=== PATIENT | female | born 1955 | race Caucasian/White ===

== ENCOUNTER 2017-09-01 08:53 | Day surgery (SDC) | payer OTHER ==
[2017-09-01] MEDS ORDERED: LIDOCAINE 2% (SDV) 5 ML INJ (10:27)
[2017-09-01] MEDS ORDERED: PROPOFOL 20 ML (10:27)
[2017-09-01] MEDS ORDERED: MIDAZOLAM 1 MG/ML 2 ML INJ (10:27)
[2017-09-01] MEDS ORDERED: FENTAnyl 50 MCG/ML VIAL (10:27)
[2017-09-01] MEDS ORDERED: LABETALOL HCL 20MG INJ (10:30)
[2017-09-01] MEDS ORDERED: hydrALAzine 20 MG INJ (10:31)
[2017-09-01] MEDS ORDERED: FLUMAZENIL 0.5 MG INJ (10:50)
== END 2017-09-01 12:20 | disposition home or self-care (01) ==
LOC: GIL 08:53
DX: Z12.11 Encounter for screening for malignant neoplasm of colon (principal); K29.50 Unspecified chronic gastritis without bleeding; D12.6 Benign neoplasm of colon, unspecified; I10 Essential (primary) hypertension; E11.9 Type 2 diabetes mellitus without complications; E66.9 Obesity, unspecified; Z68.37 Body mass index [BMI] 37.0-37.9, adult
CPT/HCPCS: 43239; 82962; 88305; 88312

== ENCOUNTER 2017-11-16 06:05 | Day surgery (SDC) | payer OTHER ==
[2017-11-16 06:38] LABS: ADD MAN DIFF? NO
[2017-11-16 06:42] LABS: WHITE BLOOD COUNT 10.1 10^3/ul (4.8-10.8)
[2017-11-16 06:42] LABS: BASOPHILS % 0.4 % (0.0-2.0); EOSINOPHILS # 0.2 10^3/ul (0.0-0.5); EOSINOPHILS % 1.5 % (0.0-7.0); HEMATOCRIT 35.4 % (37.0-47.0); HEMOGLOBIN 11.6 g/dl (12.0-16.0); LYMPHOCYTES # 2.4 10^3/ul (0.8-2.9); LYMPHOCYTES % 24.2 % (15.0-51.0); MEAN CORPUSCULAR HEMOGLOBIN 28.2 pg (29.0-33.0); MEAN CORPUSCULAR HGB CONC 32.8 g/dl (32.0-37.0); MEAN CORPUSCULAR VOLUME 85.9 fl (82.0-101.0); MEAN PLATELET VOLUME 11.7 fl (7.4-10.4); MONOCYTE # 0.8 10^3/ul (0.3-0.9); MONOCYTES % 8.1 % (0.0-11.0); NEUTROPHIL # 6.6 10^3/ul (1.6-7.5); NEUTROPHILS % 65.4 % (39.0-77.0); PLATELET COUNT 216 10^3/UL (140-415); RED BLOOD COUNT 4.12 10^6/ul (4.20-5.40); RED CELL DISTRIBUTION WIDTH 13.3 % (11.5-14.5)
[2017-11-16 06:50] LABS: ALANINE AMINOTRANSFERASE 22 IU/L (13-69); ALBUMIN/GLOBULIN RATIO 1.07; ALKALINE PHOSPHATASE 107 IU/L (42-121); ANION GAP 12 (8-16); ASPARTATE AMINO TRANSFERASE 14 IU/L (15-46); BILIRUBIN,INDIRECT 0.1 mg/dl (0-1.1); BILIRUBIN,TOTAL 0.1 mg/dl (0.2-1.3); CARBON DIOXIDE 25 mmol/L (21-31); CHLORIDE 108 mmol/L (97-110); GLUCOSE 298 mg/dl (70-220); TOTAL PROTEIN 5.8 g/dl (6.1-8.1)
[2017-11-16 06:54] LABS: BLOOD UREA NITROGEN 20 mg/dl (7-20); CALCIUM 8.6 mg/dl (8.4-10.2); CREATININE 1.01 mg/dl (0.44-1.00); SODIUM 141 mmol/L (135-144)
[2017-11-16] MEDS ORDERED: FENTAnyl 50 MCG/ML VIAL ×2 (07:17→08:38)
[2017-11-16] MEDS ORDERED: IODIXANOL LOCM 100 ML BTL (07:17)
[2017-11-16] MEDS ORDERED: HEPARIN 1000 UNITS/NS (A-LINE) 1,000 ML (07:17)
[2017-11-16] MEDS ORDERED: MIDAZOLAM 1 MG/ML 2 ML INJ (07:17)
[2017-11-16 07:34] LABS: INR 0.91; PARTIAL THROMBOPLASTIN TIME 24.5 Sec (25.0-35.0); PROTIME 12.4 Sec (11.9-14.9)
[2017-11-16] MEDS ORDERED: HEPARIN 1000 UNITS/ML 10 ML INJ (07:57)
[2017-11-16] MEDS ORDERED: hydrALAzine 20 MG INJ (09:56)
[2017-11-16] MEDS: hydrALAzine 20 MG INJ IV (10:15)
[2017-11-16] MEDS: ACETAMINOPHEN 325 MG TAB PO (10:34)
== END 2017-11-16 13:30 | disposition home or self-care (01) ==
LOC: SDS 06:05
DX: I70.221 Atherosclerosis of native arteries of extremities with rest pain, right leg (principal); E66.01 Morbid (severe) obesity due to excess calories; Z68.37 Body mass index [BMI] 37.0-37.9, adult; E11.9 Type 2 diabetes mellitus without complications
CPT/HCPCS: 37227; 75710; 76937; 80053; 82962; 85025; 85610; 85730

== ENCOUNTER 2017-12-27 07:57 | Day surgery (SDC) | payer OTHER ==
[2017-12-27 08:43] LABS: ADD MAN DIFF? NO
[2017-12-27 08:44] LABS: BASOPHILS % 0.3 % (0.0-2.0); EOSINOPHILS # 0.2 10^3/ul (0.0-0.5); EOSINOPHILS % 1.7 % (0.0-7.0); HEMATOCRIT 36.5 % (37.0-47.0); HEMOGLOBIN 11.9 g/dl (12.0-16.0); LYMPHOCYTES # 2.5 10^3/ul (0.8-2.9); LYMPHOCYTES % 23.5 % (15.0-51.0); MEAN CORPUSCULAR HEMOGLOBIN 27.8 pg (29.0-33.0); MEAN CORPUSCULAR HGB CONC 32.6 g/dl (32.0-37.0); MEAN CORPUSCULAR VOLUME 85.3 fl (82.0-101.0); MEAN PLATELET VOLUME 11.4 fl (7.4-10.4); MONOCYTE # 0.8 10^3/ul (0.3-0.9); MONOCYTES % 7.1 % (0.0-11.0); NEUTROPHIL # 7.1 10^3/ul (1.6-7.5); NEUTROPHILS % 66.9 % (39.0-77.0); PLATELET COUNT 239 10^3/UL (140-415); RED BLOOD COUNT 4.28 10^6/ul (4.20-5.40); RED CELL DISTRIBUTION WIDTH 13.7 % (11.5-14.5)
[2017-12-27 08:44] LABS: WHITE BLOOD COUNT 10.6 10^3/ul (4.8-10.8)
[2017-12-27 09:01] LABS: ALANINE AMINOTRANSFERASE 23 IU/L (13-69); ALBUMIN 3.6 g/dl (3.3-4.9); ALBUMIN/GLOBULIN RATIO 1.28; ALKALINE PHOSPHATASE 112 IU/L (42-121); ANION GAP 14 (8-16); ASPARTATE AMINO TRANSFERASE 17 IU/L (15-46); BILIRUBIN,INDIRECT 0.3 mg/dl (0-1.1); BILIRUBIN,TOTAL 0.3 mg/dl (0.2-1.3); CALCIUM 8.9 mg/dl (8.4-10.2); CARBON DIOXIDE 26 mmol/L (21-31); CHLORIDE 105 mmol/L (97-110); CREATININE 1.01 mg/dl (0.44-1.00); GLUCOSE 185 mg/dl (70-220); POTASSIUM 4.3 mmol/L (3.5-5.1); SODIUM 141 mmol/L (135-144); TOTAL PROTEIN 6.4 g/dl (6.1-8.1)
[2017-12-27 09:02] LABS: BLOOD UREA NITROGEN 24 mg/dl (7-20)
[2017-12-27 09:13] LABS: PROTIME 12.2 Sec (11.9-14.9)
[2017-12-27 09:17] LABS: PARTIAL THROMBOPLASTIN TIME 24.6 Sec (25.0-35.0)
[2017-12-27] MEDS ORDERED: HEPARIN 1000 UNITS/NS (A-LINE) 1,000 ML (09:24)
[2017-12-27] MEDS ORDERED: LIDOCAINE 1% (MDV) 10 ML INJ (09:24)
[2017-12-27] MEDS ORDERED: IODIXANOL LOCM 100 ML BTL (09:24)
[2017-12-27] MEDS ORDERED: FENTAnyl 50 MCG/ML VIAL (09:26)
[2017-12-27] MEDS ORDERED: MIDAZOLAM 1 MG/ML 2 ML INJ (09:26)
[2017-12-27] MEDS ORDERED: SOD CHLORIDE 0.9% 500 ML (10:14)
[2017-12-27] MEDS ORDERED: SOD CHLORIDE 0.9% 1,000 ML IV (11:13)
[2017-12-27] MEDS ORDERED: ONDANSETRON 4 MG INJ IV (11:30)
[2017-12-27] MEDS: hydrALAzine 20 MG INJ IV (12:10)
[2017-12-27] MEDS: ACETAMINOPHEN 325 MG TAB PO (12:55)
== END 2017-12-27 15:50 | disposition home or self-care (01) ==
LOC: SDS 07:57
DX: I73.9 Peripheral vascular disease, unspecified (principal); E11.9 Type 2 diabetes mellitus without complications; I10 Essential (primary) hypertension
CPT/HCPCS: 37227; 75710; 76937; 80053; 82962; 85025; 85610; 85730

== ENCOUNTER 2018-02-07 02:52 | Inpatient (IN) | payer OTHER ==
[2018-02-07] MEDS ORDERED: NITROGLYCERIN (SL) 0.4 MG TAB SL (03:30)
[2018-02-07] MEDS ORDERED: ACETAMINOPHEN 325 MG TAB PO ×2 (03:30→14:00)
[2018-02-07] MEDS ORDERED: DEXTROSE 50% 50 ML SYRINGE IV ×2 (04:00)
[2018-02-07] MEDS ORDERED: GLUCOSE GEL 15 GRAM TUBE BUCCAL (04:00)
[2018-02-07] MEDS ORDERED: GLUCOSE GEL 15 GRAM TUBE PO ×2 (04:00)
[2018-02-07] MEDS ORDERED: GLUCAGON 1 MG INJ IM (04:00)
[2018-02-07] MEDS: BENAZEPRIL 40 MG TAB PO (04:06)
[2018-02-07 05:59] LABS: ADD MAN DIFF? NO
[2018-02-07 06:06] LABS: WHITE BLOOD COUNT 9.9 10^3/ul (4.8-10.8)
[2018-02-07 06:06] LABS: BASOPHILS % 0.4 % (0.0-2.0); EOSINOPHILS # 0.1 10^3/ul (0.0-0.5); EOSINOPHILS % 1.4 % (0.0-7.0); HEMATOCRIT 34.7 % (37.0-47.0); HEMOGLOBIN 11.6 g/dl (12.0-16.0); IMMATURE GRANS #M 0.04 10^3/ul; IMMATURE GRANS % (M) 0.4 %; LYMPHOCYTES # 2.5 10^3/ul (0.8-2.9); LYMPHOCYTES % 25.1 % (15.0-51.0); MEAN CORPUSCULAR HGB CONC 33.4 g/dl (32.0-37.0); MEAN CORPUSCULAR VOLUME 83.6 fl (82.0-101.0); MEAN PLATELET VOLUME 11.7 fl (7.4-10.4); MONOCYTE # 0.7 10^3/ul (0.3-0.9); NEUTROPHIL # 6.5 10^3/ul (1.6-7.5); NEUTROPHILS % 65.7 % (39.0-77.0); PLATELET COUNT 258 10^3/UL (140-415); RED BLOOD COUNT 4.15 10^6/ul (4.20-5.40); RED CELL DISTRIBUTION WIDTH 13.7 % (11.5-14.5)
[2018-02-07 06:51] LABS: ALANINE AMINOTRANSFERASE 19 IU/L (13-69); ALBUMIN 3.2 g/dl (3.3-4.9); ALBUMIN/GLOBULIN RATIO 1.03; ALKALINE PHOSPHATASE 127 IU/L (42-121); ANION GAP 13 (8-16); ASPARTATE AMINO TRANSFERASE 18 IU/L (15-46); BILIRUBIN,INDIRECT 0.1 mg/dl (0-1.1); BILIRUBIN,TOTAL 0.1 mg/dl (0.2-1.3); BLOOD UREA NITROGEN 23 mg/dl (7-20); CARBON DIOXIDE 25 mmol/L (21-31); CHLORIDE 103 mmol/L (97-110); CHOL/HDL RATIO 6.8 RATIO; CHOLESTEROL 218 mg/dl (100-200); CREATINE KINASE 56 IU/L (23-200); CREATININE 0.96 mg/dl (0.44-1.00); GLUCOSE 322 mg/dl (70-220); HDL CHOLESTEROL 32 mg/dl (35-98); POTASSIUM 4.5 mmol/L (3.5-5.1); SODIUM 136 mmol/L (135-144); TOTAL PROTEIN 6.3 g/dl (6.1-8.1)
[2018-02-07 06:54] LABS: CK INDEX 1.2; CK-MB 0.69 ng/ml (0.0-2.4); TROPONIN-I 0.055 ng/ml (0.000-0.120)
[2018-02-07 07:02] LABS: LDL CHOLESTEROL,CALCULATED 16 mg/dl; TRIGLYCERIDES 852 mg/dl (0-149)
[2018-02-07 07:44] LABS: HEMOGLOBIN A1C 9.8 % (0-5.9)
[2018-02-07] MEDS: INSULIN ASPART [NOVOLOG] 3 ML PEN SC ×6 (08:09→21:00)
[2018-02-07] MEDS: CLOPIDOGREL 75 MG TAB PO (08:14)
[2018-02-07] MEDS: INSULIN GLARGINE [LANTus] (100 UNITS/ML) SYG SC (08:30)
[2018-02-07] MEDS ORDERED: ONDANSETRON 4 MG INJ IV (14:00)
[2018-02-07] MEDS ORDERED: morphine 2 MG INJ IV (14:00)
[2018-02-07] MEDS ORDERED: HYDROCODONE/APAP (5/325) TAB PO (14:00)
[2018-02-07] MEDS ORDERED: INSULIN LISPRO 100 UNIT/ML VIAL SC (17:30)
[2018-02-07] MEDS: ATORVASTATIN 20 MG TAB PO (20:18)
[2018-02-07] MEDS: LOSARTAN 25 MG TAB PO (20:19)
[2018-02-08] MEDS: ACCU-CHEK XX (02:00)
[2018-02-08 06:14] LABS: ADD MAN DIFF? NO
[2018-02-08 06:21] LABS: WHITE BLOOD COUNT 9.5 10^3/ul (4.8-10.8)
[2018-02-08 06:21] LABS: BASOPHILS % 0.4 % (0.0-2.0); EOSINOPHILS # 0.2 10^3/ul (0.0-0.5); EOSINOPHILS % 2.4 % (0.0-7.0); HEMATOCRIT 33.1 % (37.0-47.0); IMMATURE GRANS #M 0.05 10^3/ul; IMMATURE GRANS % (M) 0.5 %; LYMPHOCYTES # 2.5 10^3/ul (0.8-2.9); LYMPHOCYTES % 26.8 % (15.0-51.0); MEAN CORPUSCULAR HEMOGLOBIN 28.2 pg (29.0-33.0); MEAN CORPUSCULAR HGB CONC 33.2 g/dl (32.0-37.0); MEAN CORPUSCULAR VOLUME 84.9 fl (82.0-101.0); MEAN PLATELET VOLUME 11.6 fl (7.4-10.4); MONOCYTE # 0.9 10^3/ul (0.3-0.9); MONOCYTES % 9.7 % (0.0-11.0); NEUTROPHIL # 5.7 10^3/ul (1.6-7.5); NEUTROPHILS % 60.2 % (39.0-77.0); PLATELET COUNT 232 10^3/UL (140-415); RED CELL DISTRIBUTION WIDTH 13.6 % (11.5-14.5)
[2018-02-08 06:36] LABS: INR 0.93; PROTIME 12.6 Sec (11.9-14.9)
[2018-02-08 06:51] LABS: TROPONIN-I 0.035 ng/ml (0.000-0.120)
[2018-02-08 06:57] LABS: ALANINE AMINOTRANSFERASE 27 IU/L (13-69); ALBUMIN 2.8 g/dl (3.3-4.9); ALBUMIN/GLOBULIN RATIO 1.12; ALKALINE PHOSPHATASE 108 IU/L (42-121); ANION GAP 12 (8-16); ASPARTATE AMINO TRANSFERASE 17 IU/L (15-46); BILIRUBIN,INDIRECT 0.2 mg/dl (0-1.1); BILIRUBIN,TOTAL 0.2 mg/dl (0.2-1.3); BLOOD UREA NITROGEN 29 mg/dl (7-20); CALCIUM 8.8 mg/dl (8.4-10.2); CARBON DIOXIDE 25 mmol/L (21-31); CHLORIDE 102 mmol/L (97-110); CREATININE 1.34 mg/dl (0.44-1.00); GLUCOSE 300 mg/dl (70-220); MAGNESIUM 1.8 mg/dl (1.7-2.5); PHOSPHORUS 4.9 mg/dl (2.5-4.9); SODIUM 134 mmol/L (135-144); TOTAL PROTEIN 5.3 g/dl (6.1-8.1)
[2018-02-08] MEDS: INSULIN ASPART [NOVOLOG] 3 ML PEN SC ×6 (07:41→17:31)
[2018-02-08] MEDS: CLOPIDOGREL 75 MG TAB PO (08:12)
[2018-02-08] MEDS: LOSARTAN 25 MG TAB PO (08:13)
[2018-02-08] MEDS: INSULIN GLARGINE [LANTus] (100 UNITS/ML) SYG SC (08:25)
[2018-02-08] MEDS: ENOXAPARIN 40 MG/0.4 ML SYG SC (08:27)
[2018-02-08 09:23] LABS: CHOLESTEROL 191 mg/dl (100-200)
[2018-02-08 09:23] LABS: CHOL/HDL RATIO 6.8 RATIO; HDL CHOLESTEROL 28 mg/dl (35-98); LDL CHOLESTEROL,CALCULATED 27 mg/dl
[2018-02-08 09:24] LABS: TRIGLYCERIDES 679 mg/dl (0-149)
[2018-02-09] MEDS ORDERED: INSULIN GLARGINE [LANTus] (100 UNITS/ML) SYG SC (08:00)
== END 2018-02-08 18:59 | disposition home or self-care (01) | DRG 313 ==
LOC: 6WM 02:52
DX: R07.89 Other chest pain (principal); E88.81 Metabolic syndrome and other insulin resistance; I65.29 Occlusion and stenosis of unspecified carotid artery; R19.7 Diarrhea, unspecified; E11.9 Type 2 diabetes mellitus without complications; E11.40 Type 2 diabetes mellitus with diabetic neuropathy, unspecified; D64.9 Anemia, unspecified; K21.9 Gastro-esophageal reflux disease without esophagitis; R55 Syncope and collapse; Z79.4 Long term (current) use of insulin
CPT/HCPCS: 71045; 80053; 80061; 82550; 82553; 82962; 83036; 83735; 84100; 84443; 84484; 85025; 85610; 87081; 93005; 93306; 93880; G0378

== ENCOUNTER 2018-03-10 05:45 | Day surgery (SDC) | payer OTHER ==
[2018-03-10 06:48] LABS: ADD MAN DIFF? NO
[2018-03-10 06:50] LABS: BASOPHIL # 0.1 10^3/ul (0.0-0.1); BASOPHILS % 0.4 % (0.0-2.0); EOSINOPHILS # 0.2 10^3/ul (0.0-0.5); EOSINOPHILS % 1.2 % (0.0-7.0); HEMOGLOBIN 10.7 g/dl (12.0-16.0); LYMPHOCYTES # 2.3 10^3/ul (0.8-2.9); LYMPHOCYTES % 16.6 % (15.0-51.0); MEAN CORPUSCULAR HEMOGLOBIN 28.2 pg (29.0-33.0); MEAN CORPUSCULAR HGB CONC 32.4 g/dl (32.0-37.0); MEAN CORPUSCULAR VOLUME 86.8 fl (82.0-101.0); MEAN PLATELET VOLUME 11.3 fl (7.4-10.4); MONOCYTE # 1.2 10^3/ul (0.3-0.9); MONOCYTES % 8.8 % (0.0-11.0); NEUTROPHIL # 10.2 10^3/ul (1.6-7.5); NEUTROPHILS % 72.4 % (39.0-77.0); PLATELET COUNT 273 10^3/UL (140-415); RED CELL DISTRIBUTION WIDTH 14.5 % (11.5-14.5)
[2018-03-10 07:17] LABS: ALANINE AMINOTRANSFERASE 22 IU/L (13-69); ALBUMIN 3.4 g/dl (3.3-4.9); ALBUMIN/GLOBULIN RATIO 1.09; ALKALINE PHOSPHATASE 94 IU/L (42-121); ANION GAP 12 (8-16); ASPARTATE AMINO TRANSFERASE 21 IU/L (15-46); BILIRUBIN,INDIRECT 0.6 mg/dl (0-1.1); BILIRUBIN,TOTAL 0.6 mg/dl (0.2-1.3); BLOOD UREA NITROGEN 20 mg/dl (7-20); CALCIUM 8.9 mg/dl (8.4-10.2); CARBON DIOXIDE 22 mmol/L (21-31); CHLORIDE 110 mmol/L (97-110); GLUCOSE 130 mg/dl (70-220); SODIUM 140 mmol/L (135-144); TOTAL PROTEIN 6.5 g/dl (6.1-8.1)
[2018-03-10 07:19] LABS: HOLD TRANSMISSIONS 1
[2018-03-10 07:50] LABS: INR 0.98; PROTIME 13.1 Sec (11.9-14.9)
[2018-03-10] MEDS ORDERED: LIDOCAINE 1% (MDV) 20 ML INJ (07:50)
[2018-03-10] MEDS ORDERED: FENTAnyl 50 MCG/ML VIAL (07:50)
[2018-03-10] MEDS ORDERED: IODIXANOL LOCM 100 ML BTL ×2 (07:50→09:31)
[2018-03-10] MEDS ORDERED: MIDAZOLAM 1 MG/ML 2 ML INJ (07:50)
[2018-03-10 07:51] LABS: PARTIAL THROMBOPLASTIN TIME 29.6 Sec (25.0-35.0)
[2018-03-10] MEDS ORDERED: HEPARIN 1000 UNITS/ML 10 ML INJ (09:31)
[2018-03-10] MEDS ORDERED: morphine 2 MG INJ IV (10:00)
[2018-03-10] MEDS ORDERED: ONDANSETRON 4 MG INJ IV (10:00)
[2018-03-10] MEDS ORDERED: SOD CHLORIDE 0.9% 1,000 ML IV (10:00)
== END 2018-03-10 16:50 | disposition home or self-care (01) ==
LOC: SDS 05:45
DX: I73.9 Peripheral vascular disease, unspecified (principal); E11.9 Type 2 diabetes mellitus without complications; I10 Essential (primary) hypertension
CPT/HCPCS: 37224; 75625; 75716; 76937; 80053; 82962; 85025; 85610; 85730

== ENCOUNTER 2018-03-11 18:32 | Inpatient (IN) | payer OTHER ==
[2018-03-11] MEDS ORDERED: DEXTROSE 50% 50 ML SYRINGE IV ×2 (21:30)
[2018-03-11] MEDS ORDERED: GLUCAGON 1 MG INJ IM (21:30)
[2018-03-11] MEDS ORDERED: GLUCOSE GEL 15 GRAM TUBE BUCCAL (21:30)
[2018-03-11] MEDS ORDERED: GLUCOSE GEL 15 GRAM TUBE PO ×2 (21:30)
[2018-03-12] MEDS: INSULIN ASPART [NOVOLOG] 3 ML PEN SC ×5 (00:18→20:59)
[2018-03-12] MEDS ORDERED: NACL 0.9% 3 ML SYG IV (00:30)
[2018-03-12] MEDS ORDERED: ALBUTEROL/IPRATROPIUM (NEB) 3 ML AMP HHN (00:30)
[2018-03-12] MEDS ORDERED: NITROGLYCERIN (SL) 0.4 MG TAB SL ×2 (00:30)
[2018-03-12] MEDS ORDERED: ONDANSETRON 4 MG INJ IV (00:30)
[2018-03-12] MEDS ORDERED: ACETAMINOPHEN 325 MG TAB PO (00:30)
[2018-03-12 00:50] LABS: ADD MAN DIFF? NO
[2018-03-12 00:54] LABS: WHITE BLOOD COUNT 10.6 10^3/ul (4.8-10.8)
[2018-03-12 00:54] LABS: BASOPHILS % 0.3 % (0.0-2.0); EOSINOPHILS # 0.3 10^3/ul (0.0-0.5); EOSINOPHILS % 2.6 % (0.0-7.0); HEMATOCRIT 30.1 % (37.0-47.0); HEMOGLOBIN 9.5 g/dl (12.0-16.0); LYMPHOCYTES # 1.9 10^3/ul (0.8-2.9); MEAN CORPUSCULAR HEMOGLOBIN 28.3 pg (29.0-33.0); MEAN CORPUSCULAR HGB CONC 31.6 g/dl (32.0-37.0); MEAN CORPUSCULAR VOLUME 89.6 fl (82.0-101.0); MEAN PLATELET VOLUME 12.1 fl (7.4-10.4); MONOCYTES % 9.7 % (0.0-11.0); NEUTROPHIL # 7.3 10^3/ul (1.6-7.5); PLATELET COUNT 205 10^3/UL (140-415); RED BLOOD COUNT 3.36 10^6/ul (4.20-5.40); RED CELL DISTRIBUTION WIDTH 14.6 % (11.5-14.5)
[2018-03-12 01:16] LABS: ALANINE AMINOTRANSFERASE 29 IU/L (13-69); ALBUMIN 2.9 g/dl (3.3-4.9); ALKALINE PHOSPHATASE 105 IU/L (42-121); ANION GAP 11 (8-16); ASPARTATE AMINO TRANSFERASE 34 IU/L (15-46); BILIRUBIN,INDIRECT 0.3 mg/dl (0-1.1); BILIRUBIN,TOTAL 0.3 mg/dl (0.2-1.3); BLOOD UREA NITROGEN 20 mg/dl (7-20); CALCIUM 8.4 mg/dl (8.4-10.2); CARBON DIOXIDE 23 mmol/L (21-31); CHLORIDE 108 mmol/L (97-110); CHOL/HDL RATIO 3.4 RATIO; CHOLESTEROL 89 mg/dl (100-200); CREATININE 0.86 mg/dl (0.44-1.00); GLUCOSE 231 mg/dl (70-220); HDL CHOLESTEROL 26 mg/dl (35-98); LDL CHOLESTEROL,CALCULATED 34 mg/dl; POTASSIUM 3.8 mmol/L (3.5-5.1); SODIUM 138 mmol/L (135-144); TOTAL PROTEIN 5.8 g/dl (6.1-8.1); TRIGLYCERIDES 144 mg/dl (0-149)
[2018-03-12 01:36] LABS: HEMOGLOBIN A1C 9.4 % (0-5.9)
[2018-03-12] MEDS: APIXABAN 5 MG TABLET PO ×2 (08:19→20:56)
[2018-03-12] MEDS: LOSARTAN 25 MG TAB PO (08:19)
[2018-03-12] MEDS: CLOPIDOGREL 75 MG TAB PO (08:19)
[2018-03-12] MEDS: HYDROCHLOROTHIAZIDE 25 MG TAB PO (08:19)
[2018-03-12] MEDS: AMLODIPINE 10 MG TAB PO (08:19)
[2018-03-12] MEDS: ASPIRIN 81 MG TAB PO (08:19)
[2018-03-12] MEDS ORDERED: LIRAGLUTIDE 18 UNIT SQ (09:00)
[2018-03-12] MEDS ORDERED: NON-FORMULARY/PATIENT OWN MED (Clopidogrel Bisulfate* 75 MG) PO (09:00)
[2018-03-12] MEDS ORDERED: NON-FORMULARY/PATIENT OWN MED (Carvedilol* 25 MG) PO (09:00)
[2018-03-12] MEDS: FUROSEMIDE 40 MG INJ IV (09:59)
[2018-03-12] MEDS: ACCU-CHEK XX ×5 (10:00→20:00)
[2018-03-12] MEDS: DOXAZOSIN 1 MG TAB PO (11:30)
[2018-03-12] MEDS: metFORMIN 850 MG TAB PO ×2 (11:30→17:04)
[2018-03-12] MEDS: [UNRECOGNIZED DRUG - REMARK] XX (11:30)
[2018-03-12] MEDS: FUROSEMIDE 20 MG INJ IV (11:31)
[2018-03-12 11:33] LABS: IRON 35 ug/dl (35-150)
[2018-03-12 11:43] LABS: % IRON SATURATION 13 % SAT (22-52); TOTAL IRON BINDING CAPACITY 271 ug/dl (241-421)
[2018-03-12 12:08] LABS: FERRITIN 76.9 ng/ml (11.1-264.0)
[2018-03-12] MEDS: EXENATIDE 250 MCG/ML 1.2ML PEN SC ×2 (16:54→23:00)
[2018-03-12] MEDS ORDERED: INSULIN GLARGINE [LANTus] (100 UNITS/ML) SYG SC (20:00)
[2018-03-12] MEDS: INSULIN GLARGINE [LANTus] (100 UNITS/ML) SYG SC (20:54)
[2018-03-12] MEDS: DOXAZOSIN 2 MG TAB PO (20:55)
[2018-03-12] MEDS: ATORVASTATIN 40 MG TAB PO (20:57)
[2018-03-12] MEDS ORDERED: ATORVASTATIN 40 MG TAB PO (21:00)
[2018-03-12] MEDS: LOSARTAN 50 MG TAB PO (21:01)
[2018-03-13 06:19] LABS: ADD MAN DIFF? NO
[2018-03-13 06:24] LABS: WHITE BLOOD COUNT 11.3 10^3/ul (4.8-10.8)
[2018-03-13 06:24] LABS: BASOPHILS % 0.3 % (0.0-2.0); EOSINOPHILS # 0.4 10^3/ul (0.0-0.5); EOSINOPHILS % 3.6 % (0.0-7.0); HEMATOCRIT 28.9 % (37.0-47.0); LYMPHOCYTES # 2.1 10^3/ul (0.8-2.9); LYMPHOCYTES % 18.3 % (15.0-51.0); MEAN CORPUSCULAR HGB CONC 31.1 g/dl (32.0-37.0); MEAN CORPUSCULAR VOLUME 86.8 fl (82.0-101.0); MEAN PLATELET VOLUME 11.4 fl (7.4-10.4); MONOCYTES % 9.1 % (0.0-11.0); NEUTROPHIL # 7.7 10^3/ul (1.6-7.5); NEUTROPHILS % 68.3 % (39.0-77.0); PLATELET COUNT 284 10^3/UL (140-415); RED BLOOD COUNT 3.33 10^6/ul (4.20-5.40); RED CELL DISTRIBUTION WIDTH 14.1 % (11.5-14.5)
[2018-03-13] MEDS: ACCU-CHEK XX ×6 (07:00→20:56)
[2018-03-13 07:16] LABS: ALANINE AMINOTRANSFERASE 26 IU/L (13-69); ALBUMIN 2.5 g/dl (3.3-4.9); ALKALINE PHOSPHATASE 82 IU/L (42-121); ANION GAP 11 (8-16); ASPARTATE AMINO TRANSFERASE 21 IU/L (15-46); BILIRUBIN,INDIRECT 0.2 mg/dl (0-1.1); BILIRUBIN,TOTAL 0.2 mg/dl (0.2-1.3); BLOOD UREA NITROGEN 26 mg/dl (7-20); CALCIUM 8.4 mg/dl (8.4-10.2); CARBON DIOXIDE 26 mmol/L (21-31); CHLORIDE 105 mmol/L (97-110); GLUCOSE 206 mg/dl (70-220); POTASSIUM 4.7 mmol/L (3.5-5.1); SODIUM 137 mmol/L (135-144)
[2018-03-13 07:19] LABS: MAGNESIUM 1.8 mg/dl (1.7-2.5)
[2018-03-13] MEDS ORDERED: EMPAGLIFLOZIN 10 MG TABLET PO (08:00)
[2018-03-13] MEDS: INSULIN ASPART [NOVOLOG] 3 ML PEN SC ×4 (08:17→21:00)
[2018-03-13] MEDS: APIXABAN 5 MG TABLET PO ×2 (09:42→21:02)
[2018-03-13] MEDS: metFORMIN 850 MG TAB PO ×2 (09:42→17:15)
[2018-03-13] MEDS: CHLORTHALIDONE 25 MG TAB PO (09:43)
[2018-03-13] MEDS: CLOPIDOGREL 75 MG TAB PO (09:43)
[2018-03-13] MEDS: FUROSEMIDE 40 MG INJ IV ×3 (09:43→21:01)
[2018-03-13] MEDS: ASPIRIN 81 MG TAB PO (09:43)
[2018-03-13] MEDS: LOSARTAN 50 MG TAB PO ×2 (09:43→21:00)
[2018-03-13] MEDS: EXENATIDE 250 MCG/ML 1.2ML PEN SC ×2 (14:00→20:55)
[2018-03-13] MEDS: INSULIN GLARGINE [LANTus] (100 UNITS/ML) SYG SC ×2 (14:12→21:14)
[2018-03-13] MEDS ORDERED: BISACODYL 10 MG SUPP PR (17:00)
[2018-03-13] MEDS: BISACODYL (EC) 5 MG TAB PO (17:55)
[2018-03-13] MEDS: INSULIN LISPRO 100 UNIT/ML VIAL SC (19:34)
[2018-03-13] MEDS: ATORVASTATIN 40 MG TAB PO (21:00)
[2018-03-13] MEDS: DOXAZOSIN 2 MG TAB PO (21:01)
[2018-03-14 05:46] LABS: ADD MAN DIFF? NO
[2018-03-14 05:52] LABS: WHITE BLOOD COUNT 10.7 10^3/ul (4.8-10.8)
[2018-03-14 05:52] LABS: BASOPHILS % 0.3 % (0.0-2.0); EOSINOPHILS # 0.3 10^3/ul (0.0-0.5); EOSINOPHILS % 2.9 % (0.0-7.0); HEMATOCRIT 32.4 % (37.0-47.0); HEMOGLOBIN 10.7 g/dl (12.0-16.0); LYMPHOCYTES # 1.7 10^3/ul (0.8-2.9); LYMPHOCYTES % 15.7 % (15.0-51.0); MEAN CORPUSCULAR HEMOGLOBIN 27.9 pg (29.0-33.0); MEAN CORPUSCULAR VOLUME 84.4 fl (82.0-101.0); MEAN PLATELET VOLUME 10.7 fl (7.4-10.4); MONOCYTE # 0.7 10^3/ul (0.3-0.9); MONOCYTES % 6.3 % (0.0-11.0); NEUTROPHIL # 7.9 10^3/ul (1.6-7.5); NEUTROPHILS % 74.1 % (39.0-77.0); PLATELET COUNT 330 10^3/UL (140-415); RED BLOOD COUNT 3.84 10^6/ul (4.20-5.40); RED CELL DISTRIBUTION WIDTH 13.9 % (11.5-14.5)
[2018-03-14 06:13] LABS: INR 1.21; PROTIME 15.5 Sec (11.9-14.9); PT RATIO 1.2
[2018-03-14 06:21] LABS: ALANINE AMINOTRANSFERASE 31 IU/L (13-69); ALBUMIN 3.2 g/dl (3.3-4.9); ALBUMIN/GLOBULIN RATIO 0.96; ALKALINE PHOSPHATASE 116 IU/L (42-121); ANION GAP 13 (8-16); ASPARTATE AMINO TRANSFERASE 17 IU/L (15-46); BILIRUBIN,INDIRECT 0.2 mg/dl (0-1.1); BILIRUBIN,TOTAL 0.2 mg/dl (0.2-1.3); BLOOD UREA NITROGEN 26 mg/dl (7-20); CALCIUM 9.4 mg/dl (8.4-10.2); CARBON DIOXIDE 30 mmol/L (21-31); CHLORIDE 100 mmol/L (97-110); GLUCOSE 175 mg/dl (70-220); MAGNESIUM 1.6 mg/dl (1.7-2.5); PHOSPHORUS 5.9 mg/dl (2.5-4.9); POTASSIUM 4.1 mmol/L (3.5-5.1); SODIUM 139 mmol/L (135-144); TOTAL PROTEIN 6.5 g/dl (6.1-8.1)
[2018-03-14 06:24] LABS: TROPONIN-I < 0.012 ng/ml (0.000-0.120)
[2018-03-14] MEDS: ACCU-CHEK XX ×3 (07:33→11:30)
[2018-03-14] MEDS: INSULIN ASPART [NOVOLOG] 3 ML PEN SC ×3 (07:36→17:36)
[2018-03-14] MEDS: metFORMIN 850 MG TAB PO ×2 (07:54→17:27)
[2018-03-14] MEDS: INSULIN LISPRO 100 UNIT/ML VIAL SC ×3 (07:57→17:31)
[2018-03-14] MEDS: LOSARTAN 50 MG TAB PO (08:38)
[2018-03-14] MEDS: APIXABAN 5 MG TABLET PO (08:38)
[2018-03-14] MEDS: ASPIRIN 81 MG TAB PO (08:38)
[2018-03-14] MEDS: BISACODYL (EC) 5 MG TAB PO (08:39)
[2018-03-14] MEDS: FUROSEMIDE 40 MG INJ IV ×2 (08:39→12:56)
[2018-03-14] MEDS: CLOPIDOGREL 75 MG TAB PO (08:39)
[2018-03-14] MEDS: EXENATIDE 250 MCG/ML 1.2ML PEN SC (08:46)
[2018-03-14] MEDS: MAGNESIUM SULFATE 2 GM/50 ML 50 ML IVPB (15:23)
[2018-03-15] MEDS ORDERED: HYDROCHLOROTHIAZIDE 12.5 MG CAP PO (09:00)
== END 2018-03-14 18:00 | disposition home or self-care (01) | DRG 292 ==
LOC: 6WM 03-12 16:21
PROVIDERS: Internal Medicine
DX: I11.0 Hypertensive heart disease with heart failure (principal); Z68.41 Body mass index [BMI] 40.0-44.9, adult; D62 Acute posthemorrhagic anemia; I50.33 Acute on chronic diastolic (congestive) heart failure; E11.51 Type 2 diabetes mellitus with diabetic peripheral angiopathy without gangrene; E66.01 Morbid (severe) obesity due to excess calories; E78.5 Hyperlipidemia, unspecified; I48.2 Chronic atrial fibrillation; I25.10 Atherosclerotic heart disease of native coronary artery without angina pectoris; I65.29 Occlusion and stenosis of unspecified carotid artery; I25.2 Old myocardial infarction; Z91.14 Patient's other noncompliance with medication regimen; Z95.828 Presence of other vascular implants and grafts; Z86.73 Personal history of transient ischemic attack (TIA), and cerebral infarction without residual deficits; Z90.49 Acquired absence of other specified parts of digestive tract; Z79.01 Long term (current) use of anticoagulants; Z79.4 Long term (current) use of insulin
CPT/HCPCS: 71045; 80053; 80061; 82728; 82962; 83036; 83540; 83735; 84100; 84443; 84484; 85025; 85610; 87081; 93306

== ENCOUNTER 2018-12-04 11:17 | Day surgery (SDC) | payer OTHER ==
[2018-12-04 12:08] LABS: ADD MAN DIFF? NO
[2018-12-04 12:11] LABS: WHITE BLOOD COUNT 12.3 10^3/ul (4.8-10.8)
[2018-12-04 12:11] LABS: BASOPHILS % 0.2 % (0.0-2.0); EOSINOPHILS # 0.2 10^3/ul (0.0-0.5); EOSINOPHILS % 1.5 % (0.0-7.0); HEMOGLOBIN 10.7 g/dl (12.0-16.0); LYMPHOCYTES # 2.8 10^3/ul (0.8-2.9); LYMPHOCYTES % 22.7 % (15.0-51.0); MEAN CORPUSCULAR HEMOGLOBIN 27.6 pg (29.0-33.0); MEAN CORPUSCULAR HGB CONC 32.4 g/dl (32.0-37.0); MEAN CORPUSCULAR VOLUME 85.1 fl (82.0-101.0); MEAN PLATELET VOLUME 11.4 fl (7.4-10.4); MONOCYTE # 0.8 10^3/ul (0.3-0.9); MONOCYTES % 6.4 % (0.0-11.0); NEUTROPHIL # 8.4 10^3/ul (1.6-7.5); NEUTROPHILS % 68.7 % (39.0-77.0); PLATELET COUNT 236 10^3/UL (140-415); RED BLOOD COUNT 3.88 10^6/ul (4.20-5.40); RED CELL DISTRIBUTION WIDTH 16.4 % (11.5-14.5)
[2018-12-04 12:22] LABS: HOLD TRANSMISSIONS 1
[2018-12-04 12:30] LABS: ALANINE AMINOTRANSFERASE 22 IU/L (13-69); ALBUMIN 3.3 g/dl (3.3-4.9); ALBUMIN/GLOBULIN RATIO 1.06; ALKALINE PHOSPHATASE 107 IU/L (42-121); ANION GAP 7 (5-13); ASPARTATE AMINO TRANSFERASE 21 IU/L (15-46); BILIRUBIN,INDIRECT 0.4 mg/dl (0-1.1); BILIRUBIN,TOTAL 0.4 mg/dl (0.2-1.3); CALCIUM 8.9 mg/dl (8.4-10.2); CARBON DIOXIDE 23 mmol/L (21-31); CHLORIDE 107 mmol/L (97-110); Estimated GFR 35 mL/min (>60); POTASSIUM 4.5 mmol/L (3.5-5.1); SODIUM 137 mmol/L (135-144); TOTAL PROTEIN 6.4 g/dl (6.1-8.1)
[2018-12-04 12:32] LABS: GLUCOSE 242 mg/dl (70-220)
[2018-12-04 12:33] LABS: BLOOD UREA NITROGEN 33 mg/dl (7-20); CREATININE 1.51 mg/dl (0.44-1.00)
[2018-12-04 12:54] LABS: PROTIME 12.3 Sec (11.9-14.9)
[2018-12-04] MEDS ORDERED: SOD CHLORIDE 0.9% 1,000 ML IV ×2 (13:00→15:19)
[2018-12-04 13:12] LABS: ADD UMIC YES; UR ASCORBIC ACID NEGATIVE (NEGATIVE); UR BILIRUBIN (Dip) NEGATIVE (NEGATIVE); UR BLOOD (Dip) NEGATIVE (NEGATIVE); UR CLARITY SLIGHTLY CLOUDY (CLEAR); UR COLOR YELLOW (YELLOW); UR GLUCOSE (Dip) 3+ mg/dL (NEGATIVE); UR KETONES (Dip) NEGATIVE (NEGATIVE); UR LEUKOCYTE ESTERASE (Dip) NEGATIVE Leu/ul (NEGATIVE); UR NITRITE (Dip) NEGATIVE (NEGATIVE); UR RBC 1 /HPF (0-5); UR SPECIFIC GRAVITY (Dip) 1.013 (1.003-1.030); UR SQUAMOUS EPITHELIAL CELL FEW /HPF (FEW); UR TOTAL PROTEIN (Dip) 3+ mg/dl (NEGATIVE); UR UROBILINOGEN (Dip) NEGATIVE (NEGATIVE); UR WBC 7 /HPF (0-5)
[2018-12-04] MEDS ORDERED: FENTAnyl 50 MCG/ML VIAL ×2 (13:52→14:50)
[2018-12-04] MEDS ORDERED: LIDOCAINE 1% (MDV) 20 ML INJ (13:52)
[2018-12-04] MEDS ORDERED: HEPARIN 1000 UNITS/NS (A-LINE) 1,000 ML (13:52)
[2018-12-04] MEDS ORDERED: IODIXANOL LOCM 100 ML BTL ×2 (13:52→15:13)
[2018-12-04] MEDS ORDERED: MIDAZOLAM 1 MG/ML 2 ML INJ (13:52)
[2018-12-04] MEDS ORDERED: hydrALAzine 20 MG INJ (15:15)
[2018-12-04] MEDS ORDERED: HEPARIN 1000 UNITS/ML 10 ML INJ (15:28)
[2018-12-04] MEDS ORDERED: IOHEXOL 350MG/ML 50 ML BTL (15:28)
[2018-12-04] MEDS ORDERED: ONDANSETRON 4 MG INJ IV (15:30)
[2018-12-04] MEDS: ACETAMINOPHEN 325 MG TAB PO (18:15)
[2018-12-04] MEDS: hydrALAzine 20 MG INJ IV (18:36)
== END 2018-12-07 10:20 | disposition home or self-care (01) ==
LOC: SDS 11:17
DX: I73.9 Peripheral vascular disease, unspecified (principal); I10 Essential (primary) hypertension; E11.9 Type 2 diabetes mellitus without complications
CPT/HCPCS: 37224; 75630; 80053; 81001; 82962; 85025; 85610; 85730

== ENCOUNTER 2018-12-21 05:31 | Inpatient (IN) | payer OTHER ==
[2018-12-21] MEDS ORDERED: GELATIN SIZE 100 SPONGE (06:40)
[2018-12-21] MEDS ORDERED: THROMBIN 5000 UNIT VIAL (06:41)
[2018-12-21] MEDS ORDERED: HEPARIN 1000 UNITS/ML 10 ML INJ ×2 (06:41→09:24)
[2018-12-21 06:44] LABS: ADD MAN DIFF? NO
[2018-12-21] MEDS: SOD CHLORIDE 0.9% 1,000 ML IV ×3 (06:50→22:40)
[2018-12-21 06:54] LABS: WHITE BLOOD COUNT 11.3 10^3/ul (4.8-10.8)
[2018-12-21 06:54] LABS: BASOPHILS % 0.4 % (0.0-2.0); EOSINOPHILS # 0.3 10^3/ul (0.0-0.5); EOSINOPHILS % 2.7 % (0.0-7.0); HEMATOCRIT 32.8 % (37.0-47.0); HEMOGLOBIN 10.5 g/dl (12.0-16.0); LYMPHOCYTES # 2.7 10^3/ul (0.8-2.9); LYMPHOCYTES % 24.2 % (15.0-51.0); MEAN CORPUSCULAR HEMOGLOBIN 27.9 pg (29.0-33.0); MEAN CORPUSCULAR VOLUME 87.2 fl (82.0-101.0); MEAN PLATELET VOLUME 11.6 fl (7.4-10.4); MONOCYTE # 0.9 10^3/ul (0.3-0.9); MONOCYTES % 7.5 % (0.0-11.0); NEUTROPHIL # 7.4 10^3/ul (1.6-7.5); NEUTROPHILS % 64.8 % (39.0-77.0); PLATELET COUNT 240 10^3/UL (140-415); RED BLOOD COUNT 3.76 10^6/ul (4.20-5.40); RED CELL DISTRIBUTION WIDTH 15.4 % (11.5-14.5)
[2018-12-21 07:18] LABS: INR 1.02; PARTIAL THROMBOPLASTIN TIME 27.6 Sec (23.0-35.0); PROTIME 13.5 Sec (11.9-14.9); PT RATIO 1.1
[2018-12-21 07:27] LABS: ALANINE AMINOTRANSFERASE 18 IU/L (13-69); ANION GAP 10 (5-13); ASPARTATE AMINO TRANSFERASE 21 IU/L (15-46); BILIRUBIN,INDIRECT 0.3 mg/dl (0-1.1); BILIRUBIN,TOTAL 0.3 mg/dl (0.2-1.3); CHLORIDE 107 mmol/L (97-110); POTASSIUM 4.7 mmol/L (3.5-5.1); TOTAL PROTEIN 6.3 g/dl (6.1-8.1)
[2018-12-21] MEDS: HEPARIN 1000 UNITS/ML 10 ML INJ IRR (07:30)
[2018-12-21 07:47] LABS: ALBUMIN/GLOBULIN RATIO 1.03
[2018-12-21 07:48] LABS: BLOOD UREA NITROGEN 47 mg/dl (7-20); CARBON DIOXIDE 20 mmol/L (21-31); GLUCOSE 258 mg/dl (70-220); SODIUM 137 mmol/L (135-144)
[2018-12-21 07:49] LABS: ALBUMIN 3.2 g/dl (3.3-4.9); ALKALINE PHOSPHATASE 137 IU/L (42-121); CREATININE 1.53 mg/dl (0.44-1.00); Estimated GFR 34 mL/min (>60)
[2018-12-21] MEDS ORDERED: FENTAnyl 50 MCG/ML VIAL (07:55)
[2018-12-21] MEDS ORDERED: ONDANSETRON 4 MG INJ IV (08:00)
[2018-12-21] MEDS ORDERED: DIPHENHYDRAMINE 50 MG INJ IV (08:00)
[2018-12-21] MEDS ORDERED: METOCLOPRAMIDE 10 MG INJ IV (08:00)
[2018-12-21] MEDS ORDERED: ALBUTEROL 0.083% (NEB) 2.5 MG/3 ML AMP HHN (08:00)
[2018-12-21] MEDS: INSULIN REGULAR, HUMAN 100 UNIT/1 ML 3ML VIAL SC (08:00)
[2018-12-21] MEDS ORDERED: HYDROmorphONE 1 MG/5 ML IV SYRINGE IV ×2 (08:00)
[2018-12-21] MEDS ORDERED: MEPERIDINE 25 MG INJ IV (08:00)
[2018-12-21] MEDS ORDERED: FENTAnyl 50 MCG/ML VIAL IV (08:00)
[2018-12-21] MEDS: GELATIN SIZE 100 SPONGE TOP (08:30)
[2018-12-21] MEDS: THROMBIN 5000 UNIT VIAL TOP (08:30)
[2018-12-21] MEDS: THROMBIN 5000 UNIT VIAL (10:46)
[2018-12-21] MEDS: GELATIN SIZE 100 SPONGE (10:46)
[2018-12-21] MEDS ORDERED: LIDOCAINE 100 MG SYRINGE (11:31)
[2018-12-21] MEDS ORDERED: ROCURONIUM 50 MG INJ (11:31)
[2018-12-21] MEDS ORDERED: SUCCINYLCHOLINE CHLORIDE 100 MG/5 ML SYG IV (11:31)
[2018-12-21] MEDS ORDERED: CEFAZOLIN 1 GM INJ (11:31)
[2018-12-21] MEDS ORDERED: SUGAMMADEX SODIUM 200 MG/2 ML VIAL IV (11:31)
[2018-12-21] MEDS ORDERED: PROPOFOL 20 ML (11:31)
[2018-12-21] MEDS: ACCU-CHEK XX ×3 (12:45→21:19)
[2018-12-21] MEDS: FENTAnyl 50 MCG/ML VIAL IV ×2 (13:40→14:21)
[2018-12-21] MEDS: morphine 2 MG INJ IV ×4 (13:53→20:01)
[2018-12-21] MEDS: HYDROmorphONE 1 MG/5 ML IV SYRINGE IV (14:27)
[2018-12-21] MEDS: ASPIRIN 81 MG TAB PO (14:41)
[2018-12-21] MEDS: HEPARIN 5,000 UNIT/1 ML VIAL SC ×2 (14:43→21:15)
[2018-12-21] MEDS ORDERED: ACETAMINOPHEN 325 MG TAB PO (16:00)
[2018-12-21] MEDS ORDERED: ALBUTEROL 0.083% (NEB) 2.5 MG/3 ML AMP NEB (16:00)
[2018-12-21] MEDS: HYDROmorphONE 0.5 MG/0.5 ML SYG IV ×2 (16:50→21:25)
[2018-12-21] MEDS: INSULIN ASPART [NOVOLOG] 3 ML PEN SC ×3 (18:48→21:16)
[2018-12-21] MEDS ORDERED: INSULIN GLARGINE [LANtus] 3 ML PEN SC (21:00)
[2018-12-21] MEDS: ATORVASTATIN 80 MG TAB PO (21:11)
[2018-12-21] MEDS: INSULIN GLARGINE [LANTus] (100 UNITS/ML) SYG SC (21:15)
[2018-12-21] MEDS: HYDROCODONE/APAP (10/325) TAB PO (23:36)
[2018-12-22] MEDS: HYDROmorphONE 0.5 MG/0.5 ML SYG IV ×4 (01:29→20:16)
[2018-12-22] MEDS: HYDROCODONE/APAP (5/325) TAB PO (03:45)
[2018-12-22 04:48] LABS: ADD MAN DIFF? NO
[2018-12-22 04:52] LABS: WHITE BLOOD COUNT 12.1 10^3/ul (4.8-10.8)
[2018-12-22 04:52] LABS: BASOPHILS % 0.2 % (0.0-2.0); EOSINOPHILS # 0.1 10^3/ul (0.0-0.5); EOSINOPHILS % 0.7 % (0.0-7.0); HEMOGLOBIN 8.3 g/dl (12.0-16.0); LYMPHOCYTES # 1.7 10^3/ul (0.8-2.9); LYMPHOCYTES % 14.4 % (15.0-51.0); MEAN CORPUSCULAR HEMOGLOBIN 27.3 pg (29.0-33.0); MEAN CORPUSCULAR HGB CONC 31.9 g/dl (32.0-37.0); MEAN CORPUSCULAR VOLUME 85.5 fl (82.0-101.0); MEAN PLATELET VOLUME 11.3 fl (7.4-10.4); MONOCYTE # 1.1 10^3/ul (0.3-0.9); MONOCYTES % 9.2 % (0.0-11.0); NEUTROPHILS % 75.1 % (39.0-77.0); PLATELET COUNT 193 10^3/UL (140-415); RED BLOOD COUNT 3.04 10^6/ul (4.20-5.40); RED CELL DISTRIBUTION WIDTH 15.6 % (11.5-14.5)
[2018-12-22 05:09] LABS: ANION GAP 7 (5-13); BLOOD UREA NITROGEN 43 mg/dl (7-20); CALCIUM 7.7 mg/dl (8.4-10.2); CARBON DIOXIDE 20 mmol/L (21-31); CHLORIDE 111 mmol/L (97-110); CREATININE 1.38 mg/dl (0.44-1.00); Estimated GFR 39 mL/min (>60); GLUCOSE 183 mg/dl (70-220); POTASSIUM 4.9 mmol/L (3.5-5.1); SODIUM 138 mmol/L (135-144)
[2018-12-22 05:10] LABS: MAGNESIUM 1.9 mg/dl (1.7-2.5)
[2018-12-22] MEDS: HEPARIN 5,000 UNIT/1 ML VIAL SC ×3 (06:00→22:49)
[2018-12-22] MEDS: FUROSEMIDE 20 MG TAB PO ×2 (06:35→18:05)
[2018-12-22] MEDS: ACCU-CHEK XX ×4 (07:05→21:00)
[2018-12-22] MEDS ORDERED: metFORMIN 500 MG TAB PO (07:35)
[2018-12-22] MEDS: INSULIN ASPART [NOVOLOG] 3 ML PEN SC ×7 (08:17→20:49)
[2018-12-22] MEDS: INSULIN GLARGINE [LANTus] (100 UNITS/ML) SYG SC ×2 (08:19→20:49)
[2018-12-22] MEDS ORDERED: HYDROCHLOROTHIAZIDE 25 MG TAB PO (09:00)
[2018-12-22] MEDS ORDERED: INSULIN GLARGINE [LANtus] 3 ML PEN SC (09:00)
[2018-12-22] MEDS: ASPIRIN 81 MG TAB PO (09:58)
[2018-12-22] MEDS: HYDROCODONE/APAP (10/325) TAB PO ×4 (10:01→15:38)
[2018-12-22 11:07] LABS: ADD MAN DIFF? NO
[2018-12-22 11:09] LABS: WHITE BLOOD COUNT 12.4 10^3/ul (4.8-10.8)
[2018-12-22 11:09] LABS: BASOPHILS % 0.2 % (0.0-2.0); EOSINOPHILS # 0.1 10^3/ul (0.0-0.5); EOSINOPHILS % 0.6 % (0.0-7.0); HEMATOCRIT 26.3 % (37.0-47.0); HEMOGLOBIN 8.5 g/dl (12.0-16.0); LYMPHOCYTES # 1.7 10^3/ul (0.8-2.9); LYMPHOCYTES % 13.3 % (15.0-51.0); MEAN CORPUSCULAR HEMOGLOBIN 27.9 pg (29.0-33.0); MEAN CORPUSCULAR HGB CONC 32.3 g/dl (32.0-37.0); MEAN CORPUSCULAR VOLUME 86.2 fl (82.0-101.0); MEAN PLATELET VOLUME 10.7 fl (7.4-10.4); MONOCYTE # 1.3 10^3/ul (0.3-0.9); MONOCYTES % 10.6 % (0.0-11.0); NEUTROPHIL # 9.3 10^3/ul (1.6-7.5); NEUTROPHILS % 74.7 % (39.0-77.0); PLATELET COUNT 195 10^3/UL (140-415); RED BLOOD COUNT 3.05 10^6/ul (4.20-5.40); RED CELL DISTRIBUTION WIDTH 15.8 % (11.5-14.5)
[2018-12-22] MEDS: ATORVASTATIN 80 MG TAB PO (20:06)
[2018-12-23] MEDS: HYDROmorphONE 0.5 MG/0.5 ML SYG IV ×5 (00:43→20:31)
[2018-12-23] MEDS: morphine 2 MG INJ IV (02:45)
[2018-12-23] MEDS: hydrALAzine 20 MG INJ IV (04:08)
[2018-12-23] MEDS: HYDROCODONE/APAP (10/325) TAB PO ×2 (04:08→08:32)
[2018-12-23] MEDS: FUROSEMIDE 20 MG TAB PO ×2 (05:18→17:51)
[2018-12-23] MEDS: HEPARIN 5,000 UNIT/1 ML VIAL SC ×2 (06:01→14:56)
[2018-12-23 06:54] LABS: MAGNESIUM 1.9 mg/dl (1.7-2.5)
[2018-12-23] MEDS: ACCU-CHEK XX ×4 (08:00→21:00)
[2018-12-23] MEDS: ASPIRIN 81 MG TAB PO (08:10)
[2018-12-23] MEDS: INSULIN ASPART [NOVOLOG] 3 ML PEN SC ×8 (08:21→22:11)
[2018-12-23] MEDS: INSULIN GLARGINE [LANTus] (100 UNITS/ML) SYG SC ×2 (08:22→22:11)
[2018-12-23] MEDS: APIXABAN 5 MG TABLET PO (20:43)
[2018-12-23] MEDS: ATORVASTATIN 80 MG TAB PO (20:43)
[2018-12-24] MEDS: HYDROmorphONE 0.5 MG/0.5 ML SYG IV ×3 (02:35→23:58)
[2018-12-24] MEDS: HYDROCODONE/APAP (10/325) TAB PO (04:12)
[2018-12-24] MEDS: FUROSEMIDE 20 MG TAB PO ×2 (05:20→17:39)
[2018-12-24 06:22] LABS: ADD MAN DIFF? NO
[2018-12-24 06:28] LABS: BASOPHILS % 0.3 % (0.0-2.0); EOSINOPHILS # 0.2 10^3/ul (0.0-0.5); EOSINOPHILS % 1.7 % (0.0-7.0); HEMATOCRIT 23.2 % (37.0-47.0); HEMOGLOBIN 7.7 g/dl (12.0-16.0); LYMPHOCYTES # 2.2 10^3/ul (0.8-2.9); LYMPHOCYTES % 15.8 % (15.0-51.0); MEAN CORPUSCULAR HGB CONC 33.2 g/dl (32.0-37.0); MEAN CORPUSCULAR VOLUME 84.4 fl (82.0-101.0); MEAN PLATELET VOLUME 11.8 fl (7.4-10.4); MONOCYTE # 1.5 10^3/ul (0.3-0.9); MONOCYTES % 10.8 % (0.0-11.0); NEUTROPHIL # 9.8 10^3/ul (1.6-7.5); NEUTROPHILS % 70.9 % (39.0-77.0); PLATELET COUNT 192 10^3/UL (140-415); RED BLOOD COUNT 2.75 10^6/ul (4.20-5.40); RED CELL DISTRIBUTION WIDTH 15.1 % (11.5-14.5)
[2018-12-24 06:28] LABS: WHITE BLOOD COUNT 13.8 10^3/ul (4.8-10.8)
[2018-12-24 07:12] LABS: ALBUMIN 2.7 g/dl (3.3-4.9); ANION GAP 8 (5-13); BLOOD UREA NITROGEN 34 mg/dl (7-20); CALCIUM 8.1 mg/dl (8.4-10.2); CARBON DIOXIDE 21 mmol/L (21-31); CHLORIDE 105 mmol/L (97-110); CREATININE 1.11 mg/dl (0.44-1.00); GLUCOSE 185 mg/dl (70-220); PHOSPHORUS 3.6 mg/dl (2.5-4.9); POTASSIUM 4.3 mmol/L (3.5-5.1); SODIUM 134 mmol/L (135-144)
[2018-12-24 07:16] LABS: MAGNESIUM 2.1 mg/dl (1.7-2.5)
[2018-12-24] MEDS: ACCU-CHEK XX ×4 (07:48→20:58)
[2018-12-24] MEDS: INSULIN ASPART [NOVOLOG] 3 ML PEN SC ×6 (08:05→20:58)
[2018-12-24] MEDS: INSULIN GLARGINE [LANTus] (100 UNITS/ML) SYG SC ×2 (08:19→20:54)
[2018-12-24] MEDS: ASPIRIN 81 MG TAB PO (08:20)
[2018-12-24] MEDS: APIXABAN 5 MG TABLET PO ×2 (08:21→20:52)
[2018-12-24] MEDS ORDERED: GLUCAGON 1 MG INJ IM (09:00)
[2018-12-24] MEDS ORDERED: GLUCOSE GEL 15 GRAM TUBE BUCCAL (09:00)
[2018-12-24] MEDS ORDERED: GLUCOSE GEL 15 GRAM TUBE PO ×2 (09:00)
[2018-12-24] MEDS ORDERED: DEXTROSE 50% 50 ML SYRINGE IV ×2 (09:00)
[2018-12-24] MEDS ORDERED: INSULIN GLARGINE [LANTus] (100 UNITS/ML) SYG SC (09:00)
[2018-12-24 13:22] LABS: HEMATOCRIT 22.7 % (37.0-47.0); HEMOGLOBIN 7.5 g/dl (12.0-16.0)
[2018-12-24] MEDS: OXYCODONE/ACETAMINOPHEN (5/325) TAB PO (13:50)
[2018-12-24] MEDS: OXYCODONE/ACETAMINOPHEN (10/325) TAB PO ×2 (17:14→21:20)
[2018-12-24] MEDS: MAGNESIUM HYDROXIDE 30ML CUP PO (17:49)
[2018-12-24] MEDS: SENNA/DOCUSATE NA (8.6MG/50MG) TAB PO (17:49)
[2018-12-24] MEDS: ATORVASTATIN 80 MG TAB PO (20:52)
[2018-12-25] MEDS: FUROSEMIDE 20 MG TAB PO ×2 (05:29→17:32)
[2018-12-25] MEDS: OXYCODONE/ACETAMINOPHEN (10/325) TAB PO ×3 (05:33→19:50)
[2018-12-25 07:29] LABS: ADD MAN DIFF? NO
[2018-12-25] MEDS: ACCU-CHEK XX ×4 (07:30→20:55)
[2018-12-25 07:38] LABS: BASOPHILS % 0.3 % (0.0-2.0); EOSINOPHILS # 0.4 10^3/ul (0.0-0.5); EOSINOPHILS % 2.8 % (0.0-7.0); HEMATOCRIT 22.5 % (37.0-47.0); HEMOGLOBIN 7.6 g/dl (12.0-16.0); LYMPHOCYTES # 2.3 10^3/ul (0.8-2.9); MEAN CORPUSCULAR HEMOGLOBIN 28.7 pg (29.0-33.0); MEAN CORPUSCULAR HGB CONC 33.8 g/dl (32.0-37.0); MEAN CORPUSCULAR VOLUME 84.9 fl (82.0-101.0); MEAN PLATELET VOLUME 11.6 fl (7.4-10.4); MONOCYTE # 1.2 10^3/ul (0.3-0.9); MONOCYTES % 9.6 % (0.0-11.0); NEUTROPHIL # 8.7 10^3/ul (1.6-7.5); NEUTROPHILS % 68.6 % (39.0-77.0); PLATELET COUNT 229 10^3/UL (140-415); RED BLOOD COUNT 2.65 10^6/ul (4.20-5.40)
[2018-12-25 07:38] LABS: WHITE BLOOD COUNT 12.7 10^3/ul (4.8-10.8)
[2018-12-25 07:59] LABS: ALBUMIN 2.7 g/dl (3.3-4.9); ANION GAP 7 (5-13); BLOOD UREA NITROGEN 39 mg/dl (7-20); CALCIUM 8.2 mg/dl (8.4-10.2); CARBON DIOXIDE 23 mmol/L (21-31); CHLORIDE 103 mmol/L (97-110); CREATININE 1.19 mg/dl (0.44-1.00); GLUCOSE 170 mg/dl (70-220); PHOSPHORUS 4.3 mg/dl (2.5-4.9); POTASSIUM 4.3 mmol/L (3.5-5.1); SODIUM 133 mmol/L (135-144)
[2018-12-25] MEDS: INSULIN ASPART [NOVOLOG] 3 ML PEN SC ×7 (07:59→20:50)
[2018-12-25] MEDS: SENNA/DOCUSATE NA (8.6MG/50MG) TAB PO (08:00)
[2018-12-25] MEDS: APIXABAN 5 MG TABLET PO ×2 (08:00→20:51)
[2018-12-25] MEDS: ASPIRIN 81 MG TAB PO (08:00)
[2018-12-25] MEDS: INSULIN GLARGINE [LANTus] (100 UNITS/ML) SYG SC ×2 (09:04→20:55)
[2018-12-25] MEDS: SOD CHLORIDE 0.9% 250 ML IV* (11:49)
[2018-12-25] MEDS ORDERED: ALBUTEROL/IPRATROPIUM (NEB) 3 ML AMP HHN (12:00)
[2018-12-25] MEDS: MAGNESIUM HYDROXIDE 30ML CUP PO (12:37)
[2018-12-25] MEDS: DOCUSATE SODIUM 100 MG CAP PO (12:37)
[2018-12-25] MEDS: POLYETHYLENE GLYCOL 17 GM PACKET PO (12:38)
[2018-12-25] MEDS: ALBUTEROL/IPRATROPIUM (NEB) 3 ML AMP HHN ×2 (14:00→20:38)
[2018-12-25 14:21] LABS: TROPONIN-I < 0.012 ng/ml (0.000-0.120)
[2018-12-25 15:14] LABS: IMMEDIATE SPIN CROSSMATCH 1 1
[2018-12-25] MEDS: ATORVASTATIN 80 MG TAB PO (20:51)
[2018-12-26] MEDS: OXYCODONE/ACETAMINOPHEN (10/325) TAB PO ×3 (00:54→11:46)
[2018-12-26] MEDS: HYDROmorphONE 0.5 MG/0.5 ML SYG IV ×3 (02:31→22:18)
[2018-12-26] MEDS: FUROSEMIDE 20 MG TAB PO ×2 (05:41→17:41)
[2018-12-26 06:05] LABS: ADD MAN DIFF? NO
[2018-12-26 06:09] LABS: BASOPHIL # 0.1 10^3/ul (0.0-0.1); BASOPHILS % 0.4 % (0.0-2.0); EOSINOPHILS # 0.5 10^3/ul (0.0-0.5); EOSINOPHILS % 3.6 % (0.0-7.0); HEMATOCRIT 26.8 % (37.0-47.0); HEMOGLOBIN 8.7 g/dl (12.0-16.0); LYMPHOCYTES # 2.5 10^3/ul (0.8-2.9); LYMPHOCYTES % 19.5 % (15.0-51.0); MEAN CORPUSCULAR HEMOGLOBIN 27.5 pg (29.0-33.0); MEAN CORPUSCULAR HGB CONC 32.5 g/dl (32.0-37.0); MEAN CORPUSCULAR VOLUME 84.8 fl (82.0-101.0); MEAN PLATELET VOLUME 10.8 fl (7.4-10.4); MONOCYTE # 1.3 10^3/ul (0.3-0.9); MONOCYTES % 10.4 % (0.0-11.0); NEUTROPHIL # 8.4 10^3/ul (1.6-7.5); NEUTROPHILS % 65.2 % (39.0-77.0); NUCLEATED RED BLOOD CELLS% 0.2 /100WBC (0.0-0.0); PLATELET COUNT 264 10^3/UL (140-415); RED BLOOD COUNT 3.16 10^6/ul (4.20-5.40); RED CELL DISTRIBUTION WIDTH 14.8 % (11.5-14.5)
[2018-12-26 06:09] LABS: WHITE BLOOD COUNT 12.9 10^3/ul (4.8-10.8)
[2018-12-26 06:38] LABS: PHOSPHORUS 5.3 mg/dl (2.5-4.9)
[2018-12-26 06:38] LABS: MAGNESIUM 2.8 mg/dl (1.7-2.5)
[2018-12-26 06:45] LABS: ALBUMIN 2.5 g/dl (3.3-4.9); ANION GAP 10 (5-13); BLOOD UREA NITROGEN 41 mg/dl (7-20); CALCIUM 8.6 mg/dl (8.4-10.2); CARBON DIOXIDE 23 mmol/L (21-31); CHLORIDE 102 mmol/L (97-110); CREATININE 1.12 mg/dl (0.44-1.00); GLUCOSE 126 mg/dl (70-220); PHOSPHORUS 5.4 mg/dl (2.5-4.9); POTASSIUM 4.9 mmol/L (3.5-5.1); SODIUM 135 mmol/L (135-144)
[2018-12-26] MEDS: ACCU-CHEK XX ×4 (07:30→21:00)
[2018-12-26] MEDS: ALBUTEROL/IPRATROPIUM (NEB) 3 ML AMP HHN ×3 (07:45→20:18)
[2018-12-26] MEDS: INSULIN ASPART [NOVOLOG] 3 ML PEN SC ×7 (08:50→20:46)
[2018-12-26] MEDS: INSULIN GLARGINE [LANTus] (100 UNITS/ML) SYG SC ×2 (08:54→21:36)
[2018-12-26] MEDS: APIXABAN 5 MG TABLET PO ×2 (08:57→20:38)
[2018-12-26] MEDS: ASPIRIN 81 MG TAB PO (08:57)
[2018-12-26] MEDS: GABAPENTIN 300 MG CAP PO ×2 (12:46→20:38)
[2018-12-26] MEDS: MAGNESIUM HYDROXIDE 30ML CUP PO (19:05)
[2018-12-26] MEDS: ATORVASTATIN 80 MG TAB PO (20:38)
[2018-12-26] MEDS: MAGNESIUM CITRATE 300 ML BTL PO (22:18)
[2018-12-27] MEDS: OXYCODONE/ACETAMINOPHEN (10/325) TAB PO ×5 (01:13→22:00)
[2018-12-27] MEDS: HYDROmorphONE 0.5 MG/0.5 ML SYG IV (02:26)
[2018-12-27] MEDS: FUROSEMIDE 20 MG TAB PO (05:28)
[2018-12-27] MEDS: ACCU-CHEK XX ×4 (07:30→21:00)
[2018-12-27] MEDS: ALBUTEROL/IPRATROPIUM (NEB) 3 ML AMP HHN ×3 (08:10→19:44)
[2018-12-27] MEDS: APIXABAN 5 MG TABLET PO ×2 (08:32→21:38)
[2018-12-27] MEDS: ASPIRIN 81 MG TAB PO (08:32)
[2018-12-27] MEDS: INSULIN ASPART [NOVOLOG] 3 ML PEN SC ×7 (08:33→21:00)
[2018-12-27] MEDS: GABAPENTIN 300 MG CAP PO (08:34)
[2018-12-27] MEDS: INSULIN GLARGINE [LANTus] (100 UNITS/ML) SYG SC ×2 (08:34→21:49)
[2018-12-27 09:54] LABS: ADD MAN DIFF? NO
[2018-12-27 09:56] LABS: WHITE BLOOD COUNT 13.3 10^3/ul (4.8-10.8)
[2018-12-27 09:56] LABS: BASOPHILS % 0.3 % (0.0-2.0); EOSINOPHILS # 0.4 10^3/ul (0.0-0.5); EOSINOPHILS % 2.9 % (0.0-7.0); HEMATOCRIT 28.5 % (37.0-47.0); HEMOGLOBIN 9.2 g/dl (12.0-16.0); LYMPHOCYTES # 1.7 10^3/ul (0.8-2.9); LYMPHOCYTES % 12.8 % (15.0-51.0); MEAN CORPUSCULAR HEMOGLOBIN 27.9 pg (29.0-33.0); MEAN CORPUSCULAR HGB CONC 32.3 g/dl (32.0-37.0); MEAN CORPUSCULAR VOLUME 86.4 fl (82.0-101.0); MEAN PLATELET VOLUME 10.5 fl (7.4-10.4); MONOCYTES % 7.3 % (0.0-11.0); NEUTROPHIL # 10.1 10^3/ul (1.6-7.5); NEUTROPHILS % 75.9 % (39.0-77.0); NUCLEATED RED BLOOD CELLS% 0.2 /100WBC (0.0-0.0); PLATELET COUNT 298 10^3/UL (140-415); RED CELL DISTRIBUTION WIDTH 14.9 % (11.5-14.5)
[2018-12-27 10:17] LABS: ALANINE AMINOTRANSFERASE 14 IU/L (13-69); ALBUMIN/GLOBULIN RATIO 0.93; ALKALINE PHOSPHATASE 109 IU/L (42-121); ANION GAP 8 (5-13); ASPARTATE AMINO TRANSFERASE 20 IU/L (15-46); BILIRUBIN,INDIRECT 0.4 mg/dl (0-1.1); BILIRUBIN,TOTAL 0.4 mg/dl (0.2-1.3); BLOOD UREA NITROGEN 44 mg/dl (7-20); CALCIUM 8.8 mg/dl (8.4-10.2); CARBON DIOXIDE 28 mmol/L (21-31); CHLORIDE 100 mmol/L (97-110); CREATININE 1.27 mg/dl (0.44-1.00); Estimated GFR 43 mL/min (>60); GLUCOSE 185 mg/dl (70-220); SODIUM 136 mmol/L (135-144); TOTAL PROTEIN 6.2 g/dl (6.1-8.1)
[2018-12-27] MEDS: AMLODIPINE 5 MG TAB PO (11:37)
[2018-12-27] MEDS: ONDANSETRON 4 MG INJ IV (11:45)
[2018-12-27] MEDS: PREGABALIN 50 MG CAP PO ×2 (12:15→21:38)
[2018-12-27] MEDS: PIPER-TAZO 3.375 GM IV (PMX) 100 ML IVPB (18:38)
[2018-12-27 19:31] LABS: ADD UMIC YES; UR ASCORBIC ACID NEGATIVE (NEGATIVE); UR BACTERIA FEW /HPF (NONE SEEN); UR BILIRUBIN (Dip) NEGATIVE (NEGATIVE); UR BLOOD (Dip) NEGATIVE (NEGATIVE); UR CLARITY CLEAR (CLEAR); UR COLOR STRAW (YELLOW); UR GLUCOSE (Dip) 1+ mg/dL (NEGATIVE); UR KETONES (Dip) NEGATIVE (NEGATIVE); UR LEUKOCYTE ESTERASE (Dip) NEGATIVE Leu/ul (NEGATIVE); UR NITRITE (Dip) NEGATIVE (NEGATIVE); UR RBC 0 /HPF (0-5); UR TOTAL PROTEIN (Dip) 2+ mg/dl (NEGATIVE); UR UROBILINOGEN (Dip) NEGATIVE (NEGATIVE); UR WBC 1 /HPF (0-5)
[2018-12-27] MEDS: ATORVASTATIN 80 MG TAB PO (21:38)
[2018-12-28] MEDS: PIPER-TAZO 3.375 GM IV (PMX) 100 ML IVPB ×4 (00:30→17:51)
[2018-12-28] MEDS: HYDROmorphONE 0.5 MG/0.5 ML SYG IV (00:36)
[2018-12-28] MEDS: OXYCODONE/ACETAMINOPHEN (10/325) TAB PO ×4 (06:04→22:02)
[2018-12-28] MEDS: FUROSEMIDE 20 MG TAB PO (06:04)
[2018-12-28] MEDS: ACCU-CHEK XX ×4 (07:30→20:46)
[2018-12-28 07:35] LABS: ADD MAN DIFF? NO
[2018-12-28 07:40] LABS: BASOPHILS % 0.2 % (0.0-2.0); EOSINOPHILS # 0.4 10^3/ul (0.0-0.5); EOSINOPHILS % 3.3 % (0.0-7.0); HEMATOCRIT 28.4 % (37.0-47.0); LYMPHOCYTES # 1.7 10^3/ul (0.8-2.9); LYMPHOCYTES % 14.3 % (15.0-51.0); MEAN CORPUSCULAR HEMOGLOBIN 27.3 pg (29.0-33.0); MEAN CORPUSCULAR HGB CONC 31.7 g/dl (32.0-37.0); MEAN CORPUSCULAR VOLUME 86.1 fl (82.0-101.0); MEAN PLATELET VOLUME 10.5 fl (7.4-10.4); MONOCYTE # 1.2 10^3/ul (0.3-0.9); MONOCYTES % 10.3 % (0.0-11.0); NEUTROPHIL # 8.6 10^3/ul (1.6-7.5); NEUTROPHILS % 71.2 % (39.0-77.0); NUCLEATED RED BLOOD CELLS% 0.2 /100WBC (0.0-0.0); PLATELET COUNT 317 10^3/UL (140-415); RED CELL DISTRIBUTION WIDTH 14.8 % (11.5-14.5)
[2018-12-28] MEDS: APIXABAN 5 MG TABLET PO ×2 (08:01→20:42)
[2018-12-28] MEDS: PREGABALIN 50 MG CAP PO ×2 (08:01→12:17)
[2018-12-28] MEDS: ASPIRIN 81 MG TAB PO (08:02)
[2018-12-28] MEDS: AMLODIPINE 5 MG TAB PO (08:02)
[2018-12-28] MEDS: INSULIN ASPART [NOVOLOG] 3 ML PEN SC ×7 (08:03→20:46)
[2018-12-28] MEDS: INSULIN GLARGINE [LANTus] (100 UNITS/ML) SYG SC ×2 (08:04→20:46)
[2018-12-28 08:06] LABS: ANION GAP 8 (5-13); BLOOD UREA NITROGEN 46 mg/dl (7-20); CALCIUM 8.6 mg/dl (8.4-10.2); CARBON DIOXIDE 29 mmol/L (21-31); CHLORIDE 98 mmol/L (97-110); CREATININE 1.39 mg/dl (0.44-1.00); Estimated GFR 38 mL/min (>60); GLUCOSE 166 mg/dl (70-220); MAGNESIUM 2.8 mg/dl (1.7-2.5); PHOSPHORUS 5.9 mg/dl (2.5-4.9); POTASSIUM 5.1 mmol/L (3.5-5.1); SODIUM 135 mmol/L (135-144)
[2018-12-28] MEDS: ALBUTEROL/IPRATROPIUM (NEB) 3 ML AMP HHN ×3 (08:23→20:03)
[2018-12-28] MEDS: SOD CHLORIDE 0.9% 1,000 ML IV (11:31)
[2018-12-28 18:40] LABS: CREATININE,URINE RANDOM 36.16 mg/dl (20-320)
[2018-12-28 18:40] LABS: SODIUM,URINE RANDOM 29 mmol/L (30-90)
[2018-12-28] MEDS: ATORVASTATIN 80 MG TAB PO (20:48)
[2018-12-29] MEDS: PIPER-TAZO 3.375 GM IV (PMX) 100 ML IVPB ×2 (00:37→06:47)
[2018-12-29] MEDS: HYDROmorphONE 0.5 MG/0.5 ML SYG IV (01:03)
[2018-12-29 05:46] LABS: ADD MAN DIFF? NO
[2018-12-29 05:50] LABS: BASOPHILS % 0.3 % (0.0-2.0); EOSINOPHILS # 0.6 10^3/ul (0.0-0.5); EOSINOPHILS % 4.2 % (0.0-7.0); HEMATOCRIT 25.1 % (37.0-47.0); HEMOGLOBIN 8.1 g/dl (12.0-16.0); LYMPHOCYTES # 2.2 10^3/ul (0.8-2.9); LYMPHOCYTES % 16.7 % (15.0-51.0); MEAN CORPUSCULAR HEMOGLOBIN 27.9 pg (29.0-33.0); MEAN CORPUSCULAR HGB CONC 32.3 g/dl (32.0-37.0); MEAN CORPUSCULAR VOLUME 86.6 fl (82.0-101.0); MEAN PLATELET VOLUME 10.5 fl (7.4-10.4); MONOCYTE # 1.5 10^3/ul (0.3-0.9); MONOCYTES % 11.3 % (0.0-11.0); NEUTROPHIL # 8.8 10^3/ul (1.6-7.5); NEUTROPHILS % 66.7 % (39.0-77.0); PLATELET COUNT 303 10^3/UL (140-415); RED CELL DISTRIBUTION WIDTH 14.6 % (11.5-14.5)
[2018-12-29 05:50] LABS: WHITE BLOOD COUNT 13.2 10^3/ul (4.8-10.8)
[2018-12-29 06:20] LABS: ANION GAP 7 (5-13); BLOOD UREA NITROGEN 45 mg/dl (7-20); CALCIUM 8.2 mg/dl (8.4-10.2); CARBON DIOXIDE 28 mmol/L (21-31); CHLORIDE 100 mmol/L (97-110); CREATININE 1.45 mg/dl (0.44-1.00); Estimated GFR 37 mL/min (>60); GLUCOSE 143 mg/dl (70-220); MAGNESIUM 2.7 mg/dl (1.7-2.5); PHOSPHORUS 5.5 mg/dl (2.5-4.9); POTASSIUM 5.2 mmol/L (3.5-5.1); SODIUM 135 mmol/L (135-144)
[2018-12-29] MEDS: OXYCODONE/ACETAMINOPHEN (10/325) TAB PO ×3 (06:47→21:10)
[2018-12-29] MEDS: ACCU-CHEK XX ×4 (07:30→21:00)
[2018-12-29] MEDS: INSULIN ASPART [NOVOLOG] 3 ML PEN SC ×7 (08:20→21:00)
[2018-12-29] MEDS: ASPIRIN 81 MG TAB PO (08:23)
[2018-12-29] MEDS: APIXABAN 5 MG TABLET PO ×2 (08:23→21:08)
[2018-12-29] MEDS: AMLODIPINE 5 MG TAB PO (08:23)
[2018-12-29] MEDS: ALBUTEROL/IPRATROPIUM (NEB) 3 ML AMP HHN ×3 (08:58→21:41)
[2018-12-29 10:03] LABS: PARATHYROID HORMONE 54.2 pg/ml (24.0-73.0)
[2018-12-29] MEDS: OXYCODONE/ACETAMINOPHEN (5/325) TAB PO (10:18)
[2018-12-29] MEDS: SOD CHLORIDE 0.9% 1,000 ML IV (11:00)
[2018-12-29] MEDS: INSULIN GLARGINE [LANTus] (100 UNITS/ML) SYG SC ×2 (11:11→21:11)
[2018-12-29] MEDS: ATORVASTATIN 80 MG TAB PO (21:08)
[2018-12-30] MEDS: OXYCODONE/ACETAMINOPHEN (5/325) TAB PO (00:34)
[2018-12-30] MEDS: OXYCODONE/ACETAMINOPHEN (10/325) TAB PO ×4 (01:54→20:23)
[2018-12-30 05:47] LABS: PROTEIN, TOTAL 5.3 g/dL (6.1-8.1)
[2018-12-30 06:08] LABS: ADD MAN DIFF? NO
[2018-12-30 06:09] LABS: BASOPHILS % 0.2 % (0.0-2.0); EOSINOPHILS # 0.5 10^3/ul (0.0-0.5); HEMOGLOBIN 7.6 g/dl (12.0-16.0); LYMPHOCYTES # 2.6 10^3/ul (0.8-2.9); LYMPHOCYTES % 20.5 % (15.0-51.0); MEAN CORPUSCULAR HEMOGLOBIN 27.6 pg (29.0-33.0); MEAN CORPUSCULAR HGB CONC 31.7 g/dl (32.0-37.0); MEAN CORPUSCULAR VOLUME 87.3 fl (82.0-101.0); MONOCYTE # 1.3 10^3/ul (0.3-0.9); MONOCYTES % 10.6 % (0.0-11.0); NEUTROPHIL # 8.1 10^3/ul (1.6-7.5); NEUTROPHILS % 64.1 % (39.0-77.0); PLATELET COUNT 307 10^3/UL (140-415); RED BLOOD COUNT 2.75 10^6/ul (4.20-5.40); RED CELL DISTRIBUTION WIDTH 14.8 % (11.5-14.5)
[2018-12-30 06:09] LABS: WHITE BLOOD COUNT 12.7 10^3/ul (4.8-10.8)
[2018-12-30 06:49] LABS: ANION GAP 5 (5-13); BLOOD UREA NITROGEN 41 mg/dl (7-20); CALCIUM 8.5 mg/dl (8.4-10.2); CARBON DIOXIDE 27 mmol/L (21-31); CHLORIDE 106 mmol/L (97-110); CREATININE 1.33 mg/dl (0.44-1.00); Estimated GFR 40 mL/min (>60); GLUCOSE 108 mg/dl (70-220); MAGNESIUM 2.8 mg/dl (1.7-2.5); POTASSIUM 5.2 mmol/L (3.5-5.1); SODIUM 138 mmol/L (135-144)
[2018-12-30] MEDS: ACCU-CHEK XX ×4 (07:30→20:24)
[2018-12-30] MEDS: ALBUTEROL/IPRATROPIUM (NEB) 3 ML AMP HHN ×3 (07:40→20:48)
[2018-12-30] MEDS: INSULIN ASPART [NOVOLOG] 3 ML PEN SC ×7 (07:59→20:20)
[2018-12-30] MEDS: INSULIN GLARGINE [LANTus] (100 UNITS/ML) SYG SC ×2 (08:00→20:23)
[2018-12-30] MEDS: APIXABAN 5 MG TABLET PO ×2 (08:00→20:21)
[2018-12-30] MEDS: ASPIRIN 81 MG TAB PO (08:00)
[2018-12-30] MEDS: AMLODIPINE 5 MG TAB PO (08:01)
[2018-12-30 11:30] LABS: HEMATOCRIT 25.5 % (37.0-47.0); HEMOGLOBIN 8.1 g/dl (12.0-16.0)
[2018-12-30 11:49] LABS: ALANINE AMINOTRANSFERASE 20 IU/L (13-69); ALBUMIN 2.8 g/dl (3.3-4.9); ALKALINE PHOSPHATASE 104 IU/L (42-121); ASPARTATE AMINO TRANSFERASE 19 IU/L (15-46); BILIRUBIN,INDIRECT 0.2 mg/dl (0-1.1); BILIRUBIN,TOTAL 0.2 mg/dl (0.2-1.3); TOTAL PROTEIN 5.9 g/dl (6.1-8.1)
[2018-12-30 11:57] LABS: % IRON SATURATION 9 % SAT (22-52)
[2018-12-30 12:06] LABS: IRON 22 ug/dl (35-150); TOTAL IRON BINDING CAPACITY 255 ug/dl (241-421)
[2018-12-30] MEDS: NA POLYST SULFON 15 GM/60 ML BTL PO (12:19)
[2018-12-30] MEDS ORDERED: BISACODYL (EC) 5 MG TAB PO (16:00)
[2018-12-30] MEDS: MAGNESIUM HYDROXIDE 30ML CUP PO (17:15)
[2018-12-30] MEDS: ATORVASTATIN 80 MG TAB PO (20:21)
[2018-12-30 20:46] LABS: ALBUMIN 2.2 g/dL (3.8-4.8); ALPHA-1-GLOBULINS 0.5 g/dL (0.2-0.3); ALPHA-2-GLOBULINS 1.1 g/dL (0.5-0.9); BETA 2 GLOBULINS 0.3 g/dL (0.2-0.5); BETA GLOBULINS 0.4 g/dL (0.4-0.6); GAMMA GLOBULINS 0.7 g/dL (0.8-1.7)
[2018-12-31] MEDS: OXYCODONE/ACETAMINOPHEN (10/325) TAB PO ×6 (00:40→22:37)
[2018-12-31 05:50] LABS: ADD MAN DIFF? NO
[2018-12-31 05:58] LABS: BASOPHILS % 0.3 % (0.0-2.0); EOSINOPHILS # 0.6 10^3/ul (0.0-0.5); EOSINOPHILS % 4.5 % (0.0-7.0); HEMATOCRIT 25.1 % (37.0-47.0); HEMOGLOBIN 7.9 g/dl (12.0-16.0); LYMPHOCYTES # 2.2 10^3/ul (0.8-2.9); LYMPHOCYTES % 17.4 % (15.0-51.0); MEAN CORPUSCULAR HEMOGLOBIN 27.1 pg (29.0-33.0); MEAN CORPUSCULAR HGB CONC 31.5 g/dl (32.0-37.0); MEAN CORPUSCULAR VOLUME 86.3 fl (82.0-101.0); MEAN PLATELET VOLUME 9.8 fl (7.4-10.4); MONOCYTE # 1.3 10^3/ul (0.3-0.9); MONOCYTES % 9.9 % (0.0-11.0); NEUTROPHIL # 8.6 10^3/ul (1.6-7.5); PLATELET COUNT 317 10^3/UL (140-415); RED BLOOD COUNT 2.91 10^6/ul (4.20-5.40)
[2018-12-31 05:58] LABS: WHITE BLOOD COUNT 12.9 10^3/ul (4.8-10.8)
[2018-12-31 06:31] LABS: ANION GAP 5 (5-13); BLOOD UREA NITROGEN 36 mg/dl (7-20); CALCIUM 8.3 mg/dl (8.4-10.2); CARBON DIOXIDE 27 mmol/L (21-31); CHLORIDE 105 mmol/L (97-110); CREATININE 1.08 mg/dl (0.44-1.00); Estimated GFR 51 mL/min (>60); GLUCOSE 146 mg/dl (70-220); MAGNESIUM 2.7 mg/dl (1.7-2.5); PHOSPHORUS 4.8 mg/dl (2.5-4.9); POTASSIUM 4.8 mmol/L (3.5-5.1); SODIUM 137 mmol/L (135-144)
[2018-12-31] MEDS: INSULIN ASPART [NOVOLOG] 3 ML PEN SC ×7 (08:00→20:41)
[2018-12-31] MEDS: ALBUTEROL/IPRATROPIUM (NEB) 3 ML AMP HHN ×3 (08:00→20:03)
[2018-12-31] MEDS: INSULIN GLARGINE [LANTus] (100 UNITS/ML) SYG SC ×2 (08:11→20:36)
[2018-12-31] MEDS: ACCU-CHEK XX ×4 (08:14→21:00)
[2018-12-31] MEDS: APIXABAN 5 MG TABLET PO ×2 (08:43→20:37)
[2018-12-31] MEDS: AMLODIPINE 5 MG TAB PO (08:44)
[2018-12-31] MEDS: ASPIRIN 81 MG TAB PO (08:45)
[2018-12-31] MEDS: SOD FERRIC GLUC COMPLX 125 MG in SOD CHLORIDE 0.9% 100 ML IVPB (12:24)
[2018-12-31] MEDS: CEFEPIME 1GM/50 ML (PMX) 50 ML IVPB ×2 (13:51→23:01)
[2018-12-31] MEDS: FUROSEMIDE 20 MG TAB PO (13:56)
[2018-12-31] MEDS: ATORVASTATIN 80 MG TAB PO (20:37)
[2019-01-01] MEDS: OXYCODONE/ACETAMINOPHEN (10/325) TAB PO ×4 (02:44→18:31)
[2019-01-01 06:06] LABS: ADD MAN DIFF? NO
[2019-01-01 06:13] LABS: BASOPHILS % 0.3 % (0.0-2.0); EOSINOPHILS # 0.6 10^3/ul (0.0-0.5); EOSINOPHILS % 4.4 % (0.0-7.0); HEMATOCRIT 24.6 % (37.0-47.0); HEMOGLOBIN 7.8 g/dl (12.0-16.0); LYMPHOCYTES # 1.8 10^3/ul (0.8-2.9); LYMPHOCYTES % 14.1 % (15.0-51.0); MEAN CORPUSCULAR HEMOGLOBIN 27.4 pg (29.0-33.0); MEAN CORPUSCULAR HGB CONC 31.7 g/dl (32.0-37.0); MEAN CORPUSCULAR VOLUME 86.3 fl (82.0-101.0); MEAN PLATELET VOLUME 9.7 fl (7.4-10.4); MONOCYTE # 1.2 10^3/ul (0.3-0.9); MONOCYTES % 9.6 % (0.0-11.0); PLATELET COUNT 304 10^3/UL (140-415); RED BLOOD COUNT 2.85 10^6/ul (4.20-5.40); RED CELL DISTRIBUTION WIDTH 15.1 % (11.5-14.5)
[2019-01-01 06:13] LABS: WHITE BLOOD COUNT 12.7 10^3/ul (4.8-10.8)
[2019-01-01 06:57] LABS: ANION GAP 5 (5-13); BLOOD UREA NITROGEN 31 mg/dl (7-20); CALCIUM 8.3 mg/dl (8.4-10.2); CARBON DIOXIDE 26 mmol/L (21-31); CHLORIDE 106 mmol/L (97-110); CREATININE 1.04 mg/dl (0.44-1.00); Estimated GFR 54 mL/min (>60); GLUCOSE 127 mg/dl (70-220); MAGNESIUM 2.5 mg/dl (1.7-2.5); POTASSIUM 5.2 mmol/L (3.5-5.1); SODIUM 137 mmol/L (135-144)
[2019-01-01] MEDS: ACCU-CHEK XX ×4 (07:30→21:00)
[2019-01-01] MEDS: INSULIN ASPART [NOVOLOG] 3 ML PEN SC ×7 (08:00→21:00)
[2019-01-01] MEDS: INSULIN GLARGINE [LANTus] (100 UNITS/ML) SYG SC ×2 (08:04→21:10)
[2019-01-01] MEDS: CEFEPIME 1GM/50 ML (PMX) 50 ML IVPB ×2 (08:06→21:06)
[2019-01-01] MEDS: ASPIRIN 81 MG TAB PO (08:06)
[2019-01-01] MEDS: APIXABAN 5 MG TABLET PO ×2 (08:07→21:09)
[2019-01-01] MEDS: AMLODIPINE 5 MG TAB PO (08:07)
[2019-01-01] MEDS: FUROSEMIDE 20 MG TAB PO ×2 (08:18→21:07)
[2019-01-01] MEDS: ALBUTEROL/IPRATROPIUM (NEB) 3 ML AMP HHN ×4 (08:38→19:51)
[2019-01-01 09:09] LABS: HAAIG REFLEX REFLEX FILED
[2019-01-01 10:07] LABS: HEPATITIS B SURFACE ANTIGEN NEGATIVE (NEGATIVE)
[2019-01-01 10:25] LABS: HEPATITIS B CORE ANTIBODY NEGATIVE (NEGATIVE); HEPATITIS C VIRAL ANTIBODY NEGATIVE (NEGATIVE)
[2019-01-01 10:35] LABS: COMPLEMENT C3 138 mg/dl (88-165); COMPLEMENT C4 20 mg/dl (14-44)
[2019-01-01] MEDS: SOD FERRIC GLUC COMPLX 125 MG in SOD CHLORIDE 0.9% 100 ML IVPB (12:30)
[2019-01-01 13:42] LABS: CREATININE, RANDOM URINE 38 mg/dL (20-275); PROTEIN/CREATININE RATIO 3921 mg/g creat (21-161)
[2019-01-01 15:11] LABS: CREATININE, RANDOM URINE 37 mg/dL (20-275); MICROALBUMIN 66.8 mg/dL; MICROALBUMIN/CREATININE RATIO 1805 (<30)
[2019-01-01 19:35] LABS: RHEUMATOID FACTOR NEGATIVE (NEGATIVE)
[2019-01-01] MEDS: OXYCODONE/ACETAMINOPHEN (5/325) TAB PO (20:16)
[2019-01-01] MEDS: ATORVASTATIN 80 MG TAB PO (21:07)
[2019-01-02] MEDS: OXYCODONE/ACETAMINOPHEN (10/325) TAB PO ×3 (01:43→13:26)
[2019-01-02 06:22] LABS: ADD MAN DIFF? NO
[2019-01-02 06:28] LABS: WHITE BLOOD COUNT 11.9 10^3/ul (4.8-10.8)
[2019-01-02 06:28] LABS: BASOPHILS % 0.3 % (0.0-2.0); EOSINOPHILS # 0.5 10^3/ul (0.0-0.5); EOSINOPHILS % 4.5 % (0.0-7.0); HEMATOCRIT 24.9 % (37.0-47.0); HEMOGLOBIN 7.9 g/dl (12.0-16.0); LYMPHOCYTES # 2.1 10^3/ul (0.8-2.9); LYMPHOCYTES % 17.5 % (15.0-51.0); MEAN CORPUSCULAR HEMOGLOBIN 27.5 pg (29.0-33.0); MEAN CORPUSCULAR HGB CONC 31.7 g/dl (32.0-37.0); MEAN CORPUSCULAR VOLUME 86.8 fl (82.0-101.0); MEAN PLATELET VOLUME 9.8 fl (7.4-10.4); MONOCYTE # 1.2 10^3/ul (0.3-0.9); MONOCYTES % 9.8 % (0.0-11.0); NEUTROPHILS % 67.2 % (39.0-77.0); PLATELET COUNT 297 10^3/UL (140-415); RED BLOOD COUNT 2.87 10^6/ul (4.20-5.40); RED CELL DISTRIBUTION WIDTH 15.3 % (11.5-14.5)
[2019-01-02 07:02] LABS: ANION GAP 5 (5-13); BLOOD UREA NITROGEN 28 mg/dl (7-20); CALCIUM 8.6 mg/dl (8.4-10.2); CARBON DIOXIDE 26 mmol/L (21-31); CHLORIDE 106 mmol/L (97-110); CREATININE 1.06 mg/dl (0.44-1.00); Estimated GFR 53 mL/min (>60); GLUCOSE 119 mg/dl (70-220); MAGNESIUM 2.2 mg/dl (1.7-2.5); PHOSPHORUS 5.6 mg/dl (2.5-4.9); POTASSIUM 5.4 mmol/L (3.5-5.1); SODIUM 137 mmol/L (135-144)
[2019-01-02] MEDS: ACCU-CHEK XX ×4 (07:30→21:00)
[2019-01-02] MEDS: INSULIN ASPART [NOVOLOG] 3 ML PEN SC ×7 (08:00→21:00)
[2019-01-02] MEDS: APIXABAN 5 MG TABLET PO ×2 (08:15→21:57)
[2019-01-02] MEDS: AMLODIPINE 5 MG TAB PO (08:15)
[2019-01-02] MEDS: ASPIRIN 81 MG TAB PO (08:15)
[2019-01-02] MEDS: FUROSEMIDE 20 MG TAB PO ×2 (08:16→21:56)
[2019-01-02] MEDS: INSULIN GLARGINE [LANTus] (100 UNITS/ML) SYG SC ×2 (08:18→21:53)
[2019-01-02] MEDS: CEFEPIME 1GM/50 ML (PMX) 50 ML IVPB (08:19)
[2019-01-02] MEDS: ONDANSETRON 4 MG INJ IV (08:28)
[2019-01-02] MEDS: NA POLYST SULFON 15 GM/60 ML BTL PO (08:35)
[2019-01-02] MEDS: ALBUTEROL/IPRATROPIUM (NEB) 3 ML AMP HHN ×3 (10:09→20:44)
[2019-01-02] MEDS: SOD FERRIC GLUC COMPLX 125 MG in SOD CHLORIDE 0.9% 100 ML IVPB (13:28)
[2019-01-02 13:42] LABS: ANCA SCREEN NEGATIVE (NEGATIVE)
[2019-01-02 16:50] LABS: MYELOPEROXIDASE ANTIBODY <1.0 AI; PROTEINASE-3 ANTIBODY <1.0 AI
[2019-01-02] MEDS: HYDROCODONE/APAP (5/325) TAB PO (19:17)
[2019-01-02 20:02] LABS: ANA SCREEN POSITIVE (NEGATIVE)
[2019-01-02] MEDS: HYDROCODONE/APAP (10/325) TAB PO (20:14)
[2019-01-02 21:36] LABS: ANA PATTERN NUCLEOLAR
[2019-01-02] MEDS: ATORVASTATIN 80 MG TAB PO (21:55)
[2019-01-02] MEDS: CEPHALEXIN 500 MG CAP PO (21:56)
[2019-01-03] MEDS: HYDROCODONE/APAP (10/325) TAB PO ×2 (03:26→14:51)
[2019-01-03] MEDS: HYDROCODONE/APAP (5/325) TAB PO (06:54)
[2019-01-03] MEDS: ACCU-CHEK XX ×3 (07:30→17:11)
[2019-01-03] MEDS: ALBUTEROL/IPRATROPIUM (NEB) 3 ML AMP HHN ×2 (08:00→13:52)
[2019-01-03] MEDS: INSULIN ASPART [NOVOLOG] 3 ML PEN SC ×6 (08:00→17:18)
[2019-01-03 08:08] LABS: ANION GAP 7 (5-13); BLOOD UREA NITROGEN 30 mg/dl (7-20); CALCIUM 8.9 mg/dl (8.4-10.2); CARBON DIOXIDE 27 mmol/L (21-31); CHLORIDE 106 mmol/L (97-110); CREATININE 1.21 mg/dl (0.44-1.00); Estimated GFR 45 mL/min (>60); GLUCOSE 109 mg/dl (70-220); MAGNESIUM 2.1 mg/dl (1.7-2.5); PHOSPHORUS 5.6 mg/dl (2.5-4.9); SODIUM 140 mmol/L (135-144)
[2019-01-03] MEDS: INSULIN GLARGINE [LANTus] (100 UNITS/ML) SYG SC (08:31)
[2019-01-03] MEDS: CEPHALEXIN 500 MG CAP PO ×2 (08:52→18:17)
[2019-01-03] MEDS: ASPIRIN 81 MG TAB PO (08:52)
[2019-01-03] MEDS: AMLODIPINE 5 MG TAB PO (08:52)
[2019-01-03] MEDS: APIXABAN 5 MG TABLET PO (08:53)
[2019-01-03] MEDS: FUROSEMIDE 20 MG TAB PO (08:53)
[2019-01-03] MEDS: ONDANSETRON 4 MG INJ IV (10:06)
[2019-01-03 16:31] LABS: ANTI-DNA (DOUBLE STRANDED) <95 U/mL (< 301)
== END 2019-01-03 18:30 | disposition home health service (06) | DRG 253 ==
LOC: REC 05:31 → ICU 12:30 → 6WM 12-22 12:20 → PP2 12-24 16:59 → 6WM 12-22 12:25
PROC: 041L09N Bypass Left Femoral Artery to Posterior Tibial Artery with Autologous Venous Tissue, Open Approach (ICD-10-PCS; principal; 2018-12-21 07:30)
PROC: 06BQ0ZZ Excision of Left Saphenous Vein, Open Approach (ICD-10-PCS; 2018-12-21 07:30)
PROC: 30233N1 Transfusion of Nonautologous Red Blood Cells into Peripheral Vein, Percutaneous Approach (ICD-10-PCS; 2018-12-21 07:48)
DX: E11.51 Type 2 diabetes mellitus with diabetic peripheral angiopathy without gangrene (principal); N17.9 Acute kidney failure, unspecified; D62 Acute posthemorrhagic anemia; I48.91 Unspecified atrial fibrillation; I10 Essential (primary) hypertension; E11.65 Type 2 diabetes mellitus with hyperglycemia; I70.222 Atherosclerosis of native arteries of extremities with rest pain, left leg; E78.5 Hyperlipidemia, unspecified; E66.9 Obesity, unspecified; R10.9 Unspecified abdominal pain; E11.42 Type 2 diabetes mellitus with diabetic polyneuropathy; E83.42 Hypomagnesemia; G89.4 Chronic pain syndrome; E87.5 Hyperkalemia; E87.70 Fluid overload, unspecified; E11.21 Type 2 diabetes mellitus with diabetic nephropathy; Z86.73 Personal history of transient ischemic attack (TIA), and cerebral infarction without residual deficits; Z79.01 Long term (current) use of anticoagulants; Z68.34 Body mass index [BMI] 34.0-34.9, adult
CPT/HCPCS: 36430; 71045; 71250; 74176; 76775; 80048; 80053; 80069; 80076; 81001; 81003; 82043; 82306; 82570; 82595; 82652; 82962; 83036; 83540; 83735; 83970; 84100; 84132; 84155; 84156; 84165; 84166; 84300; 84484; 85014; 85018; 85025; 85610; 85730; 86021; 86038; 86160; 86226; 86320; 86325; 86430; 86704; 86709; 86803; 86850; 86900; 86901; 86920; 87040-91; 87081; 87340; 94640; 97110; 97116; 97162; 97530